=== PATIENT | female | born 1955 | race Caucasian/White ===

== ENCOUNTER → 2021-03-19 13:35 | Outpatient (CLI) | payer MEDICARE, SELFPAY ==
--- NOTE | 2021-03-19 | ECG_ITS ---
APPROVED REPORT Exam: Resting ECG HR:87 bpm ECG Measurements Heart Rate 87 AXES AK 134 P 61 QRSd 72 QRS 62 QT 374 T 12 QTc 450 Conclusion Normal sinus rhythm Normal ECG Electronically signed by : Cornel Gaona, 03/19/2021 17:28:25
--- NOTE | 2021-03-19 13:46 | XR_ITS ---
PROCEDURE: XR SACRUM COCCYX MIN 2V CLINICAL INDICATION: pain COMPARISON: No exams were available for comparison FINDINGS: There is diffuse osteopenia. The lower sacrum and coccyx are barely visible on the lateral view. No obvious displaced fracture. Nondisplaced fractures or subtle bony lesions are not excluded based on this exam. CT or MRI may provide further evaluation if clinically warranted. Bilateral iliac artery stents, multiple pelvic phleboliths, and 3 pins within the left femur are noted IMPRESSION: As above, limited evaluation of the lower sacrum and coccyx with no obvious acute finding. Dictated by: Clive Morrissey MD 03/19/2021 14:59 Clive Morrissey MD in [place] 03/19/2021 14:59
--- NOTE | 2021-03-19 13:46 | XR_ITS ---
PROCEDURE: XR LUMBAR SPINE 2-3V CLINICAL INDICATION: back pain COMPARISON: No exams were available for comparison FINDINGS: Mild lumbar curvature convex right. Iliac artery stents are present. There is degenerative disc disease at L4-3 L4 with minimal loss of height anteriorly of L3. There is slight loss of height anteriorly of the L3 vertebral body age indeterminate. No previous studies are available for comparison. Other findings:None. IMPRESSION: Mild lumbar scoliosis convex right with degenerative disc disease at L3-L4 Slight decrease in height of L3 vertebral body age indeterminate. Dictated by: Clive Morrissey MD 03/19/2021 15:02 Clive Morrissey MD in [facility] 03/19/2021 15:02
[2021-03-19 14:31] LABS: Basophils % 0.3 % (0.1-2.0); Eosinophils # 0.2 K/mm3 (0.0-0.4); Eosinophils % 2.1 % (0.1-12.0); Hematocrit 40.1 % (37.0-47.0); Hemoglobin 13.3 g/dL (12.2-16.2); Lymphocytes # 2.5 K/mm3 (0.7-4.5); Lymphocytes % 32.7 % (10-50); Mean Corpuscular HGB Conc 33.1 g/dL (31.8-35.4); Mean Corpuscular Hemoglobin 33.1 pg (27.0-31.2); Mean Corpuscular Volume 99.8 fl (81-99); Mean Platelet Volume 8.2 fl (7.4-10.4); Monocytes # 0.6 K/mm3 (0.1-1.0); Monocytes % 7.4 % (1.7-9.3); Neutrophils # 4.5 K/mm3 (1.8-7.8); Neutrophils % 57.5 % (37.0-80.0); Platelet Count 312 K/mm3 (142-424); Red Blood Count 4.02 M/mm3 (4.20-5.40); Red Cell Distribution Width 14.1 % (11.5-17.5); White Blood Count 7.7 K/mm3 (4.8-10.8)
[2021-03-19 14:55] LABS: Alanine Aminotransferase 18 U/L (12-78); Albumin/Globulin Ratio 1.5 (1.1-1.8); Alkaline Phosphatase 145 U/L (38-126); Anion Gap 15.5 mEq/L (5-15); Aspartate Amino Transferase 31 U/L (14-36); Bilirubin,Total 0.4 mg/dl (0.2-1.3); Blood Urea Nitrogen 13 mg/dl (7-17); Calcium 8.9 mg/dl (8.4-10.2); Carbon Dioxide 18 mmol/L (22.0-30.0); Chloride 107 mmol/L (98-107); Estimated Glomerular Filt Rate 72 ml/min (>60); GFR (African American) 87 ML/MIN (>60); Globulin 2.7 g/dL (1.3-3.2); Glucose 93 mg/dl (74-100); Potassium 4.5 mmoL/L (3.5-5.1); Sodium 136 mmol/L (136-145); Total Protein,Serum 6.7 g/dl (6.3-8.2)
[2021-03-19 16:05] LABS: Folate 4.16 ng/mL
== END ==
PROVIDERS: Visit Provider Specialist
DX: G20 Parkinson's disease (principal); G37.9 Demyelinating disease of central nervous system, unspecified; G89.29 Other chronic pain; I25.2 Old myocardial infarction; M25.552 Pain in left hip; M32.9 Systemic lupus erythematosus, unspecified; M54.42 Lumbago with sciatica, left side; R29.2 Abnormal reflex; W19.XXXA Unspecified fall, initial encounter; Z86.73 Personal history of transient ischemic attack (TIA), and cerebral infarction without residual deficits; Z86.79 Personal history of other diseases of the circulatory system; Z72.0 Tobacco use
CPT/HCPCS: 36415; 72100; 72220; 80053; 82746; 84443; 85025; 93005

== ENCOUNTER → 2021-04-21 08:18 | Outpatient (CLI) | payer MEDICARE, MEDICAID, SELFPAY ==
--- NOTE | 2021-04-21 08:18 | MR_ITS ---
PROCEDURE: MR HEAD/BRAIN WO CON CLINICAL INDICATION: hitory of cva Pt states h/o MS. Prior hx stroke in 2018. COMPARISON: CT CT HEAD/BRAIN WO CON from 12/09/2019 TECHNIQUE: Routine multiplanar multi echo sequences are performed without gadolinium enhancement. Double inversion recovery images also performed. FINDINGS: No midline shift, mass effect, intracranial hemorrhage, or hydrocephalus. The cerebellopontine angles, cerebellum, and brainstem have an unremarkable appearance. Scattered confluent T2 white matter hyperintensities are present diffusely with exception of the temporal lobe. Basal ganglia involvement is also present. There is diffuse increase in central T2 signal of the ze. These areas do not demonstrate restricted diffusion. There is no corpus callosum involvement.. No cerebellar or temporal lobe involvement. There is an old lacunar infarction of the thalamus on the right with cystic encephalomalacia changes in the thalamus. The cystic changes measure approximately 11 x 5 mm. Bilateral perivascular dilated spaces are present in the basal ganglia. There is a lobular area of decreased T2 signal noted on the sagittal images in the region of the anterior communicating artery measuring 8 x 5 mm suspicious for an aneurysm. If the patient can have iodinated contrast then, CT angiogram would be preferred next step in evaluation. If the patient cannot have contrast then MRA would be a good alternative. The pituitary, corpus callosum, optic chiasm, and craniocervical junction have an unremarkable appearance. No mastoid effusion. There are few small retention cysts in the sphenoid and ethmoid sinuses. No sinus air-fluid level. IMPRESSION: 1. 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 Suggest CT angiogram of the head for further evaluation. MRA may would also be an acceptable follow-up. 2. Diffuse increase in T2 white matter signal intensity as well as involvement of the ze. The pattern is more suggestive of ischemic gliotic change from microvascular disease. Multiple sclerosis would be included in the differential diagnosis. Dictated by: Clive Morrissey MD 04/22/2021 09:12 Clive Morrissey MD in [facility] 04/22/2021 09:12
--- NOTE | 2021-04-21 08:18 | MR_ITS ---
PROCEDURE: MR LUMBAR SPINE WO CON CLINICAL INDICATION: low back pain Lt leg pain and numbness. Prior x-ray 03/19/21. COMPARISON: CR XR LUMBAR SPINE 2-3V from 03/19/2021 MR MR HEAD/BRAIN WO CON from 04/21/2021 TECHNIQUE: Standard multiplanar multiecho sequences are performed without contrast. 3-D MIP and myelographic images are also rendered and reviewed FINDINGS: There is normal alignment. Spinal cord ends at the L1-L2 level. There is mild lumbar curvature convex right. T11-T12 and T12-L1. Small Schmorl's nodes with some decrease in the disc space and desiccation consistent with degenerative disc disease. Very minimal central disc protrusion at T12-L1 without impingement. L1-L2: Degenerative disc disease with concentric bulging disc with facet and ligamentum hypertrophic change with bilateral lateral recess narrowing and moderate bilateral foraminal narrowing left slightly greater than right. L2-L3: Degenerative disc disease with concentric bulging disc slightly eccentric toward the right with facet and ligamentum hypertrophic change with moderate to severe bilateral lateral recess narrowing and bilateral foraminal narrowing L3-L4: Degenerative disc disease with bulging disc along with facet and ligamentum hypertrophic change with severe bilateral lateral recess narrowing. There is a medium-sized left paracentral and foraminal disc herniation with mild superior extrusion causing severe left lateral recess and foraminal narrowing with impingement upon the exiting L3 nerve root and also some impingement upon the L4 nerve root anterior laterally. There is minimal retrolisthesis of L3 of 3 mm with canal stenosis at this level. L4-5: Mild facet and ligamentum hypertrophic change with moderate right-sided foraminal narrowing. L5-S1: Bulging disc with small broad-based right paracentral disc protrusion abutting the right S1 nerve root. Mild bilateral foraminal narrowing from facet hypertrophic change. IMPRESSION: Abnormal MRI of the lumbar spine with multilevel lumbar spondylosis with degenerative disc disease, bulging discs, left paracentral and foraminal disc herniation at L3-L4 with neural impingement. Please see above for detailed description at each level. Dictated by: Clive Morrissey MD 04/22/2021 08:24 Clive Morrissey MD in [facility] 04/22/2021 08:24
== END ==
PROVIDERS: PCP Nurse Practitioner; Visit Provider Specialist
DX: G20 Parkinson's disease (principal); G37.9 Demyelinating disease of central nervous system, unspecified; G89.29 Other chronic pain; I25.2 Old myocardial infarction; M25.552 Pain in left hip; M32.9 Systemic lupus erythematosus, unspecified; M54.42 Lumbago with sciatica, left side; R29.2 Abnormal reflex; W19.XXXA Unspecified fall, initial encounter; Z86.73 Personal history of transient ischemic attack (TIA), and cerebral infarction without residual deficits; Z86.79 Personal history of other diseases of the circulatory system
CPT/HCPCS: 70551; 72148; 76376; 93306

== ENCOUNTER → 2021-04-26 08:34 | Outpatient (CLI) | payer MEDICARE, MEDICAID, SELFPAY ==
--- NOTE | 2021-04-26 09:10 | CT_ITS ---
Procedure: CT ANGIO HEAD CLINICAL HISTORY: anterior comm artery aneurysm-RADIOLOGIST RECOMEND Abnormal MRI a suggesting an aneurysm of the anterior communicating artery COMPARISON: CT CT HEAD/BRAIN WO CON from 12/09/2019 TECHNIQUE: IV Contrast: 100ml Isovue 370 Axial images obtained with sagittal and coronal reformats. All CT scans at the facility use one or more dose reduction, viz: automated exposure control, ma/kV adjustment per patient size (including targeted exams where dose is matched to indication, i.e. head), or iterative reconstruction technique. FINDINGS: There is a saccular aneurysm projecting anteriorly from the right side of the anterior communicating artery. The aneurysm measures 5.5 mm AP, 4.5 mm transverse, and 5 mm cephalad caudad. The aneurysm has a somewhat lobular contour and is pointing anteriorly. The left A1 segment of the internal carotid artery is hypoplastic but does contribute to the anterior circulation. Most of the anterior circulation is contributed by the right A1 segment. The aneurysm originates at the junction the right A2 segment and the anterior communicating artery which courses mostly posterior to anteriorly. No other aneurysm is evident. No intracranial occlusive process or AVM apparent. There is a prominent left posterior communicating artery. Mild calcific plaque is present involving the cavernous portions of the ICAs. No significant stenosis. No dissection. No enhancing lesions are evident. No midline shift or mass effect. There is opacification of the sphenoid sinus on the left with a retention cyst on the right at 6 mm. IMPRESSION: 1. 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 2. 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
[2021-04-26 09:21] LABS: Blood Urea Nitrogen 5 mg/dl (7-17); Estimated Glomerular Filt Rate 72 ml/min (>60); GFR (African American) 87 ML/MIN (>60)
== END ==
PROVIDERS: Nurse Practitioner Family; PCP Nurse Practitioner; Visit Provider Specialist
DX: G43.909 Migraine, unspecified, not intractable, without status migrainosus (principal); R56.9 Unspecified convulsions; W19.XXXA Unspecified fall, initial encounter; Z86.73 Personal history of transient ischemic attack (TIA), and cerebral infarction without residual deficits; I67.1 Cerebral aneurysm, nonruptured
CPT/HCPCS: 36415; 70496; 82565; 84520; Q9967

== ENCOUNTER 2022-01-27 01:51 | Emergency (ER) | payer MEDICARE, MEDICAID, SELFPAY ==
[2022-01-27] VITALS (10 sets, daily range): BP systolic 77–138; BP diastolic 51–91; PULSE 66–91; RESP 16–18; TEMP 36.6–36.7; O2SAT 96–99
--- NOTE | 2022-01-27 02:11 | ECG_ITS ---
APPROVED REPORT Exam: Resting ECG HR:70 bpm ECG Measurements Heart Rate 70 AXES MT 148 P 75 QRSd 85 QRS 84 QT 450 T 67 QTc 470 Conclusion SINUS RHYTHM NORMAL ECG UNCONFIRMED REPORT Electronically signed by : Cornel Gaona MD 01/27/2022 17:41:21
--- NOTE | 2022-01-27 02:16 | XR_ITS ---
PROCEDURE INFORMATION: Exam: XR Chest Exam date and time: 01/27/2022 2:28 AM Age: 66 years old Clinical indication: Shortness of breath; Sternal or substernal pain; Additional info: SOA TECHNIQUE: Imaging protocol: XR of the chest. Views: 1 view. COMPARISON: CR XR CHEST AP 12/09/2019 5:43 AM FINDINGS: Lungs: Unremarkable. No consolidation. Pleural spaces: No pleural effusion. No pneumothorax. Heart/Mediastinum: Normal heart size. Bones/joints: Chronic-appearing deformity of the bilateral proximal humeri suggesting remote prior trauma. Old rib fractures. Degenerative changes. Prominent right subacromial keel spur. Osteopenia. IMPRESSION: No acute finding.
[2022-01-27 02:49] LABS: Erythrocyte Sedimentation Rate 19 mm/hr (0-30)
[2022-01-27 03:03] LABS: Microscopic, Urine URINE MICROSCOPIC (MICROSCOPIC)
[2022-01-27 03:06] LABS: Appearance,Urine CLEAR (Clear); Bilirubin,Urine Negative (Negative); Blood, Urine Negative (Negative); Color,Urine YELLOW (Yellow); Glucose,Urine (UA) Negative (Negative); Ketones,Urine Negative (Negative); Leukocyte Esterase,Urine Negative (Negative); Nitrate,Urine Negative (Negative); Protein,Urine Negative (Negative); Urobilinogen,Urine 0.2 EU/dl (0.2)
--- NOTE | 2022-01-27 03:22 | HMH.EDSOB ---
ED Disposition Clinical Impression: Acute exacerbation of chronic obstructive airways disease Disposition: Home, Self-Care Condition on Discharge: Good Instructions: DI for Chronic Obstructive Pulmonary Disease Additional Instructions: fluids and call pcp for follow up Prescriptions: predniSONE [Prednisone 20mg Tab] 20 mg PO BID #10 tab Transmission Status: Pending to [facility] Referrals: Provider,Referral, [Primary Care Provider] - - Critical Care Critical Care Time: No Attestation: On 01/27/22, the high probability of a clinically significant, sudden or life threatening deterioration of the following system(s) required my full and direct attention, intervention and personal management. The time I documented below is in addition to time spent performing reported procedures but includes the following listed in this critical care notation. Medical Decision Making - Medical Records Medical records reviewed: Yes: I reviewed the patient's medical records. - [facility] Inquiry Pt receiving controlled substance: No Vital Signs: 01/27/22 01:44 01/27/22 02:04 01/27/22 02:06 Temperature 97.8 F Temperature Source Oral Pulse Rate 86 70 Pulse Rate [Left Radial] 71 Pulse Rate [Orthostatic Lying Left Radial] Pulse Rate [Orthostatic Sitting Left Radial] Pulse Rate [Orthostatic Standing Left Radial] Respiratory Rate 18 Blood Pressure 77/52 L 97/51 L Blood Pressure [Orthostatic Lying Right Arm] Blood Pressure [Orthostatic Sitting Right Arm] Blood Pressure [Orthostatic Standing Right Arm] Blood Pressure [Right Arm] 96/54 L Blood Pressure Mean 57 64 Blood Pressure Mean [Right Arm] 68 Blood Pressure Source [Right Arm] Automatic Cuff Blood Pressure Position [Right Arm] Sitting 02 Sat by Pulse Oximetry 98 98 99 Oxygen Delivery Method Room Air 01/27/22 02:16 01/27/22 02:30 01/27/22 02:36 Temperature Temperature Source Pulse Rate 70 71 Pulse Rate [Left Radial] Pulse Rate [Orthostatic Lying Left Radial] 71 Pulse Rate [Orthostatic Sitting Left Radial] 69 Pulse Rate [Orthostatic Standing Left Radial] 86 Respiratory Rate Blood Pressure 93/52 L Blood Pressure [Orthostatic Lying Right Arm] 96/54 L Blood Pressure [Orthostatic Sitting Right Arm] 92/54 L Blood Pressure [Orthostatic Standing Right Arm] 77/52 L Blood Pressure [Right Arm] Blood Pressure Mean 61 Blood Pressure Mean [Right Arm] Blood Pressure Source [Right Arm] Blood Pressure Position [Right Arm] 02 Sat by Pulse Oximetry Oxygen Delivery Method 01/27/22 03:00 01/27/22 05:17 Temperature Temperature Source Pulse Rate 66 Pulse Rate [Left Radial] Pulse Rate [Orthostatic Lying Left Radial] 75 Pulse Rate [Orthostatic Sitting Left Radial] 82 Pulse Rate [Orthostatic Standing Left Radial] 83 Respiratory Rate Blood Pressure 112/61 Blood Pressure [Orthostatic Lying Right Arm] 118/60 Blood Pressure [Orthostatic Sitting Right Arm] 138/83 Blood Pressure [Orthostatic Standing Right Arm] 138/81 Blood Pressure [Right Arm] Blood Pressure Mean 78 Blood Pressure Mean [Right Arm] Blood Pressure Source [Right Arm] Blood Pressure Position [Right Arm] 02 Sat by Pulse Oximetry 99 Oxygen Delivery Method - Lab Data Lab results reviewed: Yes: I reviewed the patient's lab results. Lab Results 01/27/22 02:00: ESR 19 01/27/22 02:00: WBC 6.5, RBC 3.53 L, Hgb 11.6 L, Hct 36.4 L, MCV 103.1 H, MCH 32.9 H, MCHC 31.9, RDW 14.3, Plt Count 275, MPV 10.3, Neut % (Auto) TNP, Lymph % (Auto) TNP, Tate % (Auto) TNP, Eos % (Auto) TNP, Baso % (Auto) TNP, Neut # (Auto) TNP, Lymph # (Auto) TNP, Tate # (Auto) TNP, Eos # (Auto) TNP, Baso # (Auto) TNP 01/27/22 02:57: Troponin I < 0.01, C-Reactive Protein 6.0 H, Procalcitonin 0.234, TSH 1.67, Thyroxine (T4) 6.4 01/27/22 02:57: Sodium 138, Potassium 2.9 L*, Chloride 116 H, Carbon Dioxide 18 L, Anion Gap 6.9, BUN 8, Creatinine
[2022-01-27 03:28] LABS: Alanine Aminotransferase 19 U/L (12-78); Albumin Level 3.4 g/dl (3.5-5.0); Albumin/Globulin Ratio 1.4 (1.1-1.8); Alkaline Phosphatase 155 U/L (38-126); Anion Gap 6.9 mEq/L (5-15); Aspartate Amino Transferase 33 U/L (14-36); Bilirubin,Total 0.4 mg/dl (0.2-1.3); Blood Urea Nitrogen 8 mg/dl (7-17); Calcium 7.3 mg/dl (8.4-10.2); Carbon Dioxide 18 mmol/L (22.0-30.0); Chloride 116 mmol/L (98-107); Creatinine Clearance Estimated 46 mL/min (50-200); Estimated Glomerular Filt Rate 100 ml/min (>60); GFR (African American) 121 ML/MIN (>60); Globulin 2.5 g/dL (1.3-3.2); Glucose 77 mg/dl (74-100); Magnesium 1.9 mg/dl (1.6-2.3); Sodium 138 mmol/L (136-145); Total Protein,Serum 5.9 g/dl (6.3-8.2)
[2022-01-27 03:35] LABS: Bacteria,Urine Trace /lpf
[2022-01-27 03:36] LABS: Potassium 2.9 mmoL/L (3.5-5.1)
--- NOTE | 2022-01-27 03:44 | CT_ITS ---
PROCEDURE INFORMATION: Exam: CTA Chest With Contrast Exam date and time: 01/27/2022 4:01 AM Age: 66 years old Clinical indication: Shortness of breath; Prior surgery; Additional info: SOA TECHNIQUE: Imaging protocol: Computed tomographic angiography of the chest with contrast. 3D rendering (Not supervised by radiologist): MIP and/or 3D reconstructed images were created by the technologist. Radiation optimization: All CT scans at this facility use at least one of these dose optimization techniques: automated exposure control; mA and/or kV adjustment per patient size (includes targeted exams where dose is matched to clinical indication); or iterative reconstruction. Contrast material: ISOVUE; Contrast volume: 70 ml; Contrast route: INTRAVENOUS (IV); COMPARISON: CR XR CHEST PORTABLE 01/27/2022 2:28 AM FINDINGS: Pulmonary arteries: Normal. No pulmonary emboli. Aorta: Unremarkable. No aortic aneurysm. No aortic dissection. Lungs: Dependent atelectasis is noted. There is a 16 x 18 mm subsolid nodular density within the right lower lobe. Pleural spaces: Unremarkable. No pneumothorax. No pleural effusion. Heart: Coronary atherosclerosis is noted. Lymph nodes: Unremarkable. No enlarged lymph nodes. Liver: Peripherally enhancing lesion is seen within the right lobe of the liver likely hemangioma this measures 2.5 cm in diameter. Some chronic interstitial changes are present bilaterally. Bones/joints: Unremarkable. No acute fracture. Soft tissues: Unremarkable. IMPRESSION: 1. No evidence of pulmonary embolus. 2. 18 mm subsolid nodular density in the right lower lobe. Recommend CT Chest at 3-6 months to confirm persistence of the nodule. If unchanged and solid component remains < 6 mm, annual CT Chest should be performed for 5 years. (Reference: Matthew). 3. Coronary atherosclerosis. REFERENCES: Matthew Prajapati et al. Guidelines for Management of Incidental Pulmonary Nodules Detected on CT Images: From the Fleischner Society 2017. Radiology. 2017;284(1):228-243.
[2022-01-27 03:56] LABS: Troponin I < 0.01 ng/ml (0.00-0.034)
[2022-01-27 03:58] LABS: Procalcitonin 0.234 ng/mL (0.0-2.0); T4 (Thyroxine) 6.4 ug/dl (5.53-11.0)
[2022-01-27 04:12] LABS: Thyroid Stimulating Hormone 1.67 uIU/mL (0.465-4.68)
[2022-01-27 04:23] LABS: NT Pro Brain Natriuretic Pep. 393 pg/mL (0-125)
[2022-01-27 04:23] LABS: Coronavirus 19, PCR Not Detected (NotDetected); Influenza A, PCR Not Detected (NotDetected); Influenza B, PCR Not Detected (NotDetected)
[2022-01-27 05:37] LABS: Troponin I < 0.01 ng/ml (0.00-0.034)
[2022-01-27 05:45] LABS: Hematocrit 36.4 % (37.0-47.0); Hemoglobin 11.6 g/dL (12.2-16.2); Mean Corpuscular Hemoglobin 32.9 pg (27.0-31.2); Mean Corpuscular Volume 103.1 fl (81-99); Red Blood Count 3.53 M/mm3 (4.20-5.40)
[2022-01-27 05:46] LABS: Mean Corpuscular HGB Conc 31.9 g/dL (31.8-35.4); Mean Platelet Volume 10.3 fl (7.4-10.4); Platelet Count 275 K/mm3 (142-424); Red Cell Distribution Width 14.3 % (11.5-17.5); White Blood Count 6.5 K/mm3 (4.8-10.8)
== END 2022-01-27 07:06 | disposition home or self-care (01) ==
PROVIDERS: Emergency Provider Emergency Medicine
DX: R42 Dizziness and giddiness; N20.2 Calculus of kidney with calculus of ureter; Z20.822 Contact with and (suspected) exposure to COVID-19; I11.0 Hypertensive heart disease with heart failure; I50.20 Unspecified systolic (congestive) heart failure; I25.10 Atherosclerotic heart disease of native coronary artery without angina pectoris; I25.2 Old myocardial infarction; I73.9 Peripheral vascular disease, unspecified; I72.9 Aneurysm of unspecified site; E78.5 Hyperlipidemia, unspecified; M81.0 Age-related osteoporosis without current pathological fracture; G43.909 Migraine, unspecified, not intractable, without status migrainosus; G35 Multiple sclerosis; F17.210 Nicotine dependence, cigarettes, uncomplicated; Z79.02 Long term (current) use of antithrombotics/antiplatelets; Z79.52 Long term (current) use of systemic steroids; Z79.82 Long term (current) use of aspirin; Z79.899 Other long term (current) drug therapy; Z88.5 Allergy status to narcotic agent; Z95.5 Presence of coronary angioplasty implant and graft; Z86.718 Personal history of other venous thrombosis and embolism; Z82.49 Family history of ischemic heart disease and other diseases of the circulatory system; Z80.9 Family history of malignant neoplasm, unspecified; Z83.3 Family history of diabetes mellitus
CPT/HCPCS: 71045; 71275; 80053; 81001; 83735; 83880; 84145; 84436; 84443; 84484; 85025; 85651; 86140; 93005; 96361; 96365; 96374; 96375; 99285; C9803; Q9967; U0003; U0005

== ENCOUNTER → 2022-07-06 07:02 | Outpatient (CLI) | payer MEDICARE, MEDICAID, SELFPAY ==
[2022-07-06 19:19] LABS: Basophils # 0.3 K/mm3 (0-0.2); Basophils % 3.5 % (0.1-2.0); Eosinophils # 0.1 K/mm3 (0.0-0.4); Eosinophils % 1.4 % (0.1-12.0); Hematocrit 49.3 % (37.0-47.0); Hemoglobin 14.8 g/dL (12.2-16.2); Lymphocytes # 1.9 K/mm3 (0.7-4.5); Lymphocytes % 23.6 % (10-50); Mean Corpuscular Hemoglobin 33.8 pg (27.0-31.2); Mean Corpuscular Volume 112.6 fl (81-99); Mean Platelet Volume 9.1 fl (7.4-10.4); Monocytes # 0.5 K/mm3 (0.1-1.0); Neutrophils % 64.4 % (37.0-80.0); Platelet Count 422 K/mm3 (142-424); Red Blood Count 4.38 M/mm3 (4.20-5.40); Red Cell Distribution Width 14.5 % (11.5-17.5); White Blood Count 7.8 K/mm3 (4.8-10.8)
[2022-07-06 19:21] LABS: Alanine Aminotransferase 20 U/L (12-78); Albumin Level 3.7 g/dl (3.5-5.0); Albumin/Globulin Ratio 1.3 (1.1-1.8); Alkaline Phosphatase 198 U/L (38-126); Anion Gap 14.3 mEq/L (5-15); Aspartate Amino Transferase 39 U/L (14-36); Blood Urea Nitrogen 13 mg/dl (7-17); Calcium 8.6 mg/dl (8.4-10.2); Carbon Dioxide 23 mmol/L (22.0-30.0); Chloride 109 mmol/L (98-107); Chol/HDL Ratio 3.1 (1-3.5); Cholesterol 228 mg/dl (140-200); Estimated Glomerular Filt Rate 83 ml/min (>60); GFR (African American) 101 ML/MIN (>60); Globulin 2.8 g/dL (1.3-3.2); Glucose 89 mg/dl (74-100); HDL Cholesterol 73 mg/dl (40-60); Potassium 4.3 mmoL/L (3.5-5.1); Sodium 142 mmol/L (136-145); Total Protein,Serum 6.5 g/dl (6.3-8.2); Triglycerides 185 mg/dl (30-150); VLDL Cholesterol 37 mg/dL (0-40)
[2022-07-06 19:30] LABS: Bilirubin,Total < 0.1 mg/dl (0.2-1.3)
[2022-07-06 19:32] LABS: Direct LDL Cholesterol 118.69 mg/dL (100-129)
[2022-07-06 20:11] LABS: Vitamin B12 192 pg/mL (239-931)
== END ==
PROVIDERS: PCP Family Medicine; Visit Provider Student in an Organized Health Care Education/Training Program
DX: Z76.89 Persons encountering health services in other specified circumstances (principal); R10.9 Unspecified abdominal pain; I10 Essential (primary) hypertension; G40.909 Epilepsy, unspecified, not intractable, without status epilepticus
CPT/HCPCS: 80053; 80061; 82607; 85025

== ENCOUNTER 2024-06-26 16:47 | Outpatient (CLI) | payer MEDICARE, MEDICAID, SELFPAY ==
--- NOTE | 2024-06-26 16:51 | CT_ITS ---
PROCEDURE INFORMATION: Exam: CT Head Without Contrast Exam date and time: 06/26/2024 4:50 PM Age: 69 years old Clinical indication: Dizziness TECHNIQUE: Imaging protocol: Computed tomography of the head without contrast. Radiation optimization: All CT scans at this facility use at least one of these dose optimization techniques: automated exposure control; mA and/or kV adjustment per patient size (includes targeted exams where dose is matched to clinical indication); or iterative reconstruction. COMPARISON: CT ANGIO HEAD 04/26/2021 9:43 AM FINDINGS: Brain: There is no evidence of acute intracranial hemorrhage, extra-axial collection or locoregional mass effect. There are scattered hypodensities in the periventricular and subcortical white matter. The appearance is nonspecific, but most likely represents chronic small vessel disease in a person of this age Cerebral ventricles: The ventricles, sulci and cisterns are normal in size and configuration for patient's age. No hydrocephalus or midline structure shift Pituitary gland and sella: Sellar/parasellar structures, craniocervical junction and orbits are unremarkable Paranasal sinuses: Scattered mucosal thickening throughout the paranasal sinuses. Mastoid air cells: Visualized mastoid air cells are well aerated. Bones: No calvarial fracture Soft tissues: Unremarkable. Vasculature: Status post anterior communicating artery coil embolization. Photon starvation and streaky artifact from surgical hardware slightly obscures the assessment of the surrounding structures. IMPRESSION: 1. No acute intracranial abnormality. No calvarial fracture. 2. Status post anterior communicating artery coil embolization.
== END 2024-06-26 23:59 | disposition home or self-care (01) ==
LOC: RAD 16:47
PROVIDERS: PCP Nurse Practitioner; Visit Provider Nurse Practitioner
DX: R42 Dizziness and giddiness (principal)
CPT/HCPCS: 70450

== ENCOUNTER 2024-12-05 06:33 | Inpatient (IN) | payer MEDICARE, MEDICAID, SELFPAY ==
[2024-12-05] VITALS (59 sets, daily range): BP systolic 74–161; BP diastolic 42–127; PULSE 0–145; RESP 0–49; TEMP 35.4–36.8; O2SAT 0–97; BMI 19.5
--- NOTE | 2024-12-05 06:52 | ECG_ITS ---
APPROVED REPORT Exam: Resting ECG HR:102 bpm ECG Measurements Heart Rate 102 AXES FL 111 P -42 QRSd 84 QRS 82 QT 393 T 72 QTc 452 Conclusion SINUS TACHYCARDIA WITH SHORT FL INTERVAL POSSIBLE RIGHT VENTRICULAR CONDUCTION DELAY [RSR (QR) IN V1/V2] ST DEPRESSION, CONSIDER SUBENDOCARDIAL INJURY [0.1+ mV ST DEPRESSION] ABNORMAL ECG UNCONFIRMED REPORT Electronically signed by : Cornel Gaona MD 12/05/2024 12:54:22
--- NOTE | 2024-12-05 07:13 | PC.NURSE ---
Patient arrived to floor via [facility] @06:32
--- NOTE | 2024-12-05 07:14 | PC.NURSE ---
Patient arrived to ICU unit via [place] [facility] @06:32
--- NOTE | 2024-12-05 07:15 | PC.NURSE ---
0715 THIS NURSE TO PT BEDSIDE. ON ARRIVAL MARVA AND DR. BERG IS AT BEDSIDE PLACING A CENTRAL LINE TO RIGHT JUGULAR. PT IS ALERT AND ORIENTED AND CURRENTLY HAS A 18G IV IN RIGHT UPPER ARM AND 18G FOOT. PT IS CURRENTLY ON THE BIPAP AND NOT TOLERATING IT WELL. DR. BERG PERFORMED RIGHT SIDED THORACENTESIS WITH THIS NURSE AT BEDSIDE. REMOVED 1L FLUID. FLUID COLLECTED AND SENT TO LAB. DURING PROCEDURE PT HAD A BRADYCARDIC EPISODE WITH A HR LOW 30 AND WAS PALE AND DIAPHORETIC IN APPEARANCE. PT WAS UNCOVERED AND IMMEDIATELY PLACED ON THE ZOLL. ZEUS WITH CARDIOLOGY AT BEDSIDE AND DR. COTE PAGED TO BEDSIDE. AFTER ABOUT 2 MINUTES PT HEART RATE JUMPED TO 117 AND SYMPTOMS STABILIZED.
--- NOTE | 2024-12-05 07:23 | CT_ITS ---
FINAL REPORT TECHNIQUE: Axial imaging of the chest is obtained after the administration of contrast. 3-D MIP reformatted images were also obtained and reviewed per PE protocol. CLINICAL HISTORY: effusion, respiratory failure COMPARISON: 01/27/2022 FINDINGS: Filling defects are seen within the distal aspects of both main pulmonary arteries. There is segmental emboli in the right upper lobe and left lower lobe. RV to LV ratio is greater than 1 consistent with heart strain. There is no aortic dissection. No axillary lymphadenopathy. Multiple enlarged mediastinal and right hilar lymph nodes. A right paratracheal node measures 22 mm. Right hilar conglomerate measures 38 mm. Some of these are new and some are worse compared to the prior study.. There are several small enhancing pleural nodules at the right lung base. Airspace disease in the right middle lobe and right lower lobe is likely related to postobstructive pneumonia. The right lower lobe bronchus is occluded. Bilateral ground-glass opacities could be pneumonia or pulmonary edema. New moderate right pleural effusion and left pericardial effusion. Bilateral old rib fractures are noted. There is age-indeterminate T5 compression fracture. IMPRESSION: Bilateral pulmonary emboli with right heart strain. Mediastinal and right hilar lymphadenopathy with obstruction of the right lower lobe bronchus and what is likely postobstructive pneumonia in the right middle and lower lobes, almost assuredly related to neoplasm. Right pleural effusion with pleural nodules concerning for pleural metastases. T5 fracture, age indeterminate. Reviewed, Interpreted and Dictated by Christine Hartman MD Transcribed by Marianne Wylie Authenticated and [facility]
--- NOTE | 2024-12-05 07:23 | HMH.PHAINT1 ---
Pharmacy Intervention Comments: MEDICATION RECONCILIATION COMPLETED ON PATIENT USING EXTERNAL FILL HISTORY FROM PHARMACY AND [facility] REPORT. -IDALIA LANGLEY, HALLEYD
--- NOTE | 2024-12-05 07:27 | P.HP_ITS ---
History of Present Illness *Admission Date: 12/05/24 *Reason for visit:: sepsis *History of present illness: Ms. Mcgovern 69-year-old female who presented to [facility] due to chest discomfort and shortness of breath along with nausea and vomiting with poor p.o. intake for the past 3 to 4 days. On presentation was found to have right sided pleural effusion and troponin of 500. Cardiology was consulted for transfer which was initiated given patient's bradycardia and elevated troponin. Concern for NSTEMI and bradycardia along with effusion of unknown etiology. On arrival to our facility, labs reviewed showing elevated white count above 14 on outside hospital labs. Troponin was stable at 500 on high-sensitivity. EKG did not show ST elevations. Had episodes of bradycardia necessitating external pacing in the ambulance during transport as well as patient was started on dopamine for bradycardia and hypotension. Was placed on BiPAP upon arrival due to respiratory distress. Right IJ placed by ER physician and thoracentesis performed with removal of 1 L of blood-tinged fluid. Patient was transitioned to nasal cannula oxygen at 4 to 6 L but continued to require dopamine for hypotension and bradycardia. Was able to give more history at this time. States she has been feeling weak and having nausea and vomiting for 3 to 4 days. States she had some chest pain earlier today but does not right now. Also complaining of diffuse abdominal pain. Denies darlin fever. Family at bedside helps supplement history. Son states she is lost weight over the past year. Patient has extensive history of MS diagnosed approximately 15 years ago for which she does not seek treatment. History of CVA. Residual right-sided deficits. Continues to smoke proximately a half to a whole pack a day and has smoked for over 50 years. Review of chart shows that patient was found to have a 2 cm right lower lobe lung lesion in 01/2022 that was highly suspicious. There is been no follow-up imaging since. Previously saw neurology with Dr. Yang at [facility], last visit in 2020. Patient reports she is supposed to see Dr. Yang in the next 2 months for follow-up. Additionally patient has significant history of peripheral vascular disease. Has had stenting of bilateral femoral arteries. Has lost her right great toe due to ischemia. Left foot is cool to touch but has pulses identified via Doppler. Complaining of pain in her left foot and leg for over a month. During interview, states she wants her sister to be her surrogate decision maker and wants to be a full code at this time but states that she may want to be DNR depending on diagnoses. Has been a DNR in the past. Per chart review from follow-up with neurology: 03/09/2021: Previous diagnosis of demyelinating disorder, (declined therapy in the past, suspected to be MS based on imaging and CSF studies), remote history of seizures, (inactive since 2018), chronic migraines, (asymptomatic), remote history of stroke in the past with residual right-sided deficits. Longtime smoker. Incidental finding of ACOM aneurysm, status post coiling, active follow-up with Dr. Charles Sood, neurosurgeon, [facility]. Previous diagnosis of underlying demyelinating disorder as described on historical summary that likely account for multiple neurological deficits, gait disturbances and frequent falls. Cannot exclude secondary progressive MS. She declined disease modifying therapy in the past and she is following expected course including gait disturbances, frequent falls, memory impairment, MCI. She is on topiramate 200 mg p.o. twice daily due to remote history of seizure, seizure-free since 2018 and migraines currently headache free. She complained of short-term memory impairment and this may be, at least in part, due to current therapy with topiramate. She is not interested on change in treatment at this time or pursuing formal neuropsychological evaluation. 1. History of systemic Lupus with multiple hospitalizations due to organ failure with prior evaluation and treatment by Dr. Edgar, Internal Medicine, in [place]. Has not established rheumatological care here in [place]. Diastolic heart failure, has not established cardiac care in [place] 2. CVA, 2018, in patient at [facility] [phone] with right sided weakness, dysphagia, memory loss, language impairment with speech returned to normal after speech therapy. 3. History of seizures. Last seizure May 2018 in the setting of [place], CHF. Reports medication and dosage remained the same, phenobarbital and later on topiramate mainly for migraines. 4. Hx of spinal stenosis and frequent falls starting 10 years ago. Reports > 6 fractures following falls. Two in left arm, one right arm, left foot, left lower leg, left hip, multiple finger fractures 5. Low back pain shooting to left hip and LE x 6-7 months following a fall with shooting radicular pain radiating to left buttock, hip, thigh stopping mid calf, primarily lateral. [facility] Disclaimer: The information contained in this section may have been updated after the patient was seen, as this information can be updated by other users. Medical History (Updated 12/05/24 @ 19:35 by Sergio Lei MD) Acute respiratory failure with hypoxia H/O fracture of femur Brain aneurysm Multiple sclerosis Acute exacerbation of chronic obstructive airways disease Demyelinating disorder Parkinson disease Surgical History H/O lymph node biopsy H/O left wrist surgery H/O brain surgery Family History Mother Diabetes Coronary artery disease Lupus Father Coronary artery disease Cancer Social History (Updated 12/05/24 @ 17:43 by Shital Spencer RN) Smoking Status: Current every day smoker tobacco type: cigarettes packs per day: 1 alcohol intake: never substance use type: denies use current occupational status: disabled Travel in the last 8 weeks: None household members: other housing: house marital status: Contact w/someone who lives/traveled outside [place] past 30 days?: No Exposure to someone with infectious disease in past 14 days?: No Do you have a fever (greater than 100.4 F or 38 C)?: No Have you tested positive for COVID-19: No Exposed to someone with COVID-19 in past 14 days?: No Do you have a sore throat?: No Do you have a cough?: No Do you have any weakness?: No Are you experiencing any nausea/vomitting?: No Do you have any diarrhea?: No Are you experiencing any unusual bleeding?: No Do you have any muscle aches/pain?: No Do you have any abdominal pain?: No Are you experiencing loss of taste or smell?: No Other Medical History Have you received the Flu Vaccine for this season: No Have you received the Pneumonia Vaccine: No Review of Systems Review of Systems Review of systems (narrative): 14 point review of systems performed, pertinent positives and negatives as per HPI Meds Home Medications and Allergies Home Medications ?Medication ?Instructions ?Recorded ?Confirmed ?Type phenobarbital 16.2 mg tablet 48.6 mg PO HS 03/09/21 12/05/24 History simvastatin 40 mg tablet 40 mg PO HS #30 tabs 07/06/22 12/05/24 Rx albuterol sulfate 90 mcg/actuation 2 inh inhalation Q4HP PRN 12/05/24 12/05/24 History aerosol inhaler Shortness Of Breath clopidogrel 75 mg tablet 75 mg PO DAILY 12/05/24 12/05/24 History paroxetine HCl 40 mg tablet 40 mg PO DAILY 12/05/24 12/05/24 History primidone 50 mg tablet 200 mg PO BID 12/05/24 12/05/24 History tiotropium bromide 2.5 2 puff inhalation DAILY 12/05/24 12/05/24 History mcg/actuation mist for inhalation (Spiriva Respimat) tizanidine 4 mg tablet 4 mg PO QIDP PRN Muscle Spasm 12/05/24 12/05/24 History topiramate 200 mg tablet 200 mg PO BID 12/05/24 12/05/24 History New Prescriptions to Start Prescriptions: Allergies Allergy/AdvReac Type Severity Reaction Status Date / Time fentanyl (FENTANYL) Allergy Unknown ANAPHYLAXIS Verified 07/06/22 13:35 Opioids - Morphine Analogues Allergy Unknown ITCHING-CAN Verified 07/06/22 13:35 (OPIOIDS - MORPHINE TAKE WITH ANALOGUES) BENADRYL PER PT Exam Data for Last 24 hours Vital signs and Labs for Last 24 Hours: Pulse Resp BP Pulse Ox O2 Del Method FiO2 99 H 33 H 84/42 L 94 L BiPAP 60 12/05/24 07:08 12/05/24 07:08 12/05/24 07:08 12/05/24 07:08 12/05/24 07:08 12/05/24 07:20 Constitutional Constitutional: moderate distress, thin, chronically ill appearing, disheveled and cooperative *Routine HEENT Exam Head: Present normocephalic Eye: Present EOMI and PERRL ENT: Present mucous membranes moist *Routine Neck Exam Neck: Present supple; Absent lymphadenopathy *Routine Respiratory Exam Respiratory: Present accessory muscle use, prolonged expiratory phase, rhonchi, crackles and diminished air movement; Absent wheezes Comments: tachypnea *Routine Cardiovascular Exam Cardiovascular: Present tachycardia and irregularly irregular Comments: Having episodes of tachycardia up to the 1 teens with intermittent bradycardia to the 30s that lasts for just a few moments *Routine Abdominal Exam Abdominal: Present soft, normoactive bowel sounds and tenderness (Worsening right upper quadrant) *Routine Rectal Exam Rectal:: deferred *Routine Genitalia Exam Genitalia:: deferred *Routine Extremities Exam Extremities: Absent cyanosis, clubbing or edema *Routine Skin Exam Skin: Present intact and warm; Absent rash *Routine Neurological Exam Neurological: Present alert, oriented X3 and moving all extremities; Absent altered mental status Comments: Fatigued, dyspneic with speech. Assessment and Plan *Assessment and plan (1) Septic shock: Status: Acute Category: Medical Code(s): A41.9 - Sepsis, unspecified organism; R65.21 - Severe sepsis with septic shock (2) NSTEMI (non-ST elevated myocardial infarction): Status: Acute Category: Medical Code(s): I21.4 - Non-ST elevation (NSTEMI) myocardial infarction (3) Pleural effusion: Status: Acute Category: Medical Code(s): J90 - Pleural effusion, not elsewhere classified (4) History of CVA with residual deficit: Status: Acute Category: Medical Code(s): I69.30 - Unspecified sequelae of cerebral infarction (5) Multiple sclerosis: Status: Acute Category: Medical Code(s): G35 - Multiple sclerosis (6) Seizure disorder: Status: Acute Category: Medical Code(s): G40.909 - Epilepsy, unspecified, not intractable, without status epilepticus (7) Demyelinating disorder: Status: Suspected Category: Medical Code(s): G37.9 - Demyelinating disease of central nervous system, unspecified (8) Obstructive pneumonia: Status: Acute Category: Medical Code(s): J18.9 - Pneumonia, unspecified organism (9) Lung mass: Status: Acute Category: Medical Code(s): R91.8 - Other nonspecific abnormal finding of lung field (10) Liver lesion: Status: Acute Category: Medical Code(s): K76.9 - Liver disease, unspecified Plan Ms. Mcgovern is a 69-year-old female who presented to [facility] as a transfer from [facility] due to pleural effusion and elevated troponin. On arrival, patient presentation concerning for septic shock with hypotension, bradycardia necessitating external pacing. Large right-sided effusion. Differential includes malignant versus parapneumonic versus CHF. In critical condition, admitted to the ICU for further management. Patient unstable at this time with prognosis guarded. Cardiology and pulmonology consulted to assist with care. Workup and problems addressed as follows: Septic shock Acute hypoxemic respiratory failure Postobstructive pneumonia Pleural effusion Lung mass with pleural mets Bilateral pulmonary emboli with cor pulmonale -Chest x-ray per my review a large right pleural effusion. Improved after thoracentesis but still has effusion on right side. Left side relatively clear. Concerning for underlying pneumonia. White count elevated at 13.6. Patient tachycardic and hypotensive. -Initially on dopamine, transitioned to Umang-Synephrine for MAP goal greater than 65. -Received sepsis bolus prior to transfer from outside hospital. Will initiate LR at 75 cc an hour with bicarb drip at 50 cc an hour for total maintenance fluids of 125 cc an hour. Patient with metabolic acidosis with low bicarb. -CTA of the chest abdomen and pelvis were obtained. CTA of the chest per my review showing large effusion with masslike density in the right lung. Formal read shows pleural lesions suspicious for metastases. Findings most consistent with lung cancer with pleural metastases. Patient does not want to pursue further workup at this time. -CTA positive as well for bilateral PEs with right heart strain. Initiating hep latonia drip -Continue Vapotherm for goal sats greater 90%. Currently on 30 L 80%. Cachexia Thickening of stomach Liver lesions Abdominal lymphadenopathy -CT of abdomen and pelvis obtained showing 3 lesions on liver concerning for metastases. Distal stomach with thickening of the wall. Has lymphadenopathy in the abdomen along with adrenal lesions. -Will initiate stress dose steroids with hydrocortisone 50 mg every 6 hours in light of hypotension and adrenal lesions -Will attempt p.o. feeds. Zofran as needed every 8 hours for nausea and vomiting -Prerenal state with BUN 29, creatinine 1, repeat CBC, CMP, magnesium ordered for the morning. Repeat BMP this evening to monitor kidney function History of demyelinating disorder/MS -Previous workup with LP over 14 years ago concerning for MS. Patient has not sought any treatment. Having neurologic symptoms, unsteady on feet. No further workup at this time. CT of head shows periventricular findings concerning with chronic small vessel ischemia but consistent with her previous image findings on MRI obtained in 2020 showing findings consistent with MS. History of seizure disorder. Continue phenobarbital 48.6 mg nightly, Topamax 200 mg twice daily History of CAD and PAD: Left foot cool to touch, pulses identified with Doppler. Continue Plavix 75 mg daily. No concern for limb ischemia at this time. Previous femoral stenting. ICU/Critical care attestation This patient is critically ill with 70 minutes devoted solely to this patient managing life/organ supporting interventions that required physician assessment. This includes time spent making adjustments in ventilator settings, IV fluid administration, titration of pressors, adjustments of medications, discussion of patient with consultants and other care providers as well as updating patient and/or family (if patient by virtue of his/her condition is unable to participate in decision making). This does not include time spent performing separately billed procedures. Time is not concurrent with that of other providers.
--- NOTE | 2024-12-05 07:29 | XR_ITS ---
FINAL REPORT CLINICAL HISTORY: Bradycardia COMPARISON: 2 hours prior FINDINGS: A portable view of the chest is obtained. Cardiac and mediastinal silhouettes are normal. There is no change in right lung opacity or right pleural effusion. There is no pneumothorax. IMPRESSION: No change from prior exam. Reviewed, Interpreted and Dictated by Christine Hartman MD Transcribed by Marielena Rodriguez Authenticated and [facility]
[2024-12-05 07:34] LABS: POC Glucose,Bedside 230 (70-110)
--- NOTE | 2024-12-05 08:14 | CA_ITS ---
APPROVED REPORT EXAM: Comprehensive 2D, Doppler, and color-flow Echocardiogram Senior Communications Engineer: Alejandra Harmon CRT Ht: 5 ft 1 in Wt: 14lbs BSA: 0.61 BP: 84/42 mmHg Indications: NSTEMI, CVA/TIA, Non STEMI, CAD, smoker, lupus, sjogrens syndrome, parkinsons, pleural effusion TDE pt flat on back, had external pacer pads on, pad removed during echo. very limited windows. M-Mode Dimensions RVDd 2.08 cm (0.9-2.6) LA Diam 2.81 cm (1.9-4.0) LVDd 2.91 cm (3.5-5.7) LVDs 2.06 cm (3.5-5.7) IVSd 0.86 cm (0.6-1.1) PWd 0.93 cm (0.6-1.1) EF (Teich) 57.80% FS 29.20% EDV (Teich) 32.50 mL ESV (Teich) 13.70 mL LV Diastology E Decel Time 150 (160-240 msec) E/A Ratio 0.9 Aortic Valve AO Peak GR. 9.90 mmHg Mitral Valve MV E Max Wesley. 72.0 (40-130 cm/s) MV A Velocity 80.0 (40-130 cm/s) E/A Ratio 0.90 MV PHT 44.0 ms Pulmonary Valve PV Peak Velocity 66.0 (50-150 cm/s) Tricuspid Valve TR P. Velocity 411.00 cm/s RAP Estimate 10.00 mmHg RVSP 77.70 mmHg Left Ventricle The left ventricle is normal size. The left ventricular systolic function is hyperdynamic. There is increased LV wall thickness. An intracavitary gradient is present. No evidence of LVOT obstruction. There is normal LV segmental wall motion. Diastolic function is indeterminate. LVEF is 70%. Right Ventricle Right ventricle is mildly dilated. The right ventricular systolic function is normal. Atria The left atrium size is normal. The right atrium size is normal. The interatrial septum is not well-visualized. Aortic Valve The aortic valve is mildly thickened. There is no aortic valvular stenosis. No aortic regurgitation is present. Mitral Valve The mitral valve is normal in structure. No evidence of mitral valve stenosis. Mild mitral regurgitation. Tricuspid Valve Tricuspid valve is grossly normal in structure and function. Mild tricuspid regurgitation. RVSP is 35-40 mmHg. Pulmonic Valve The pulmonary valve is normal in structure. Trace pulmonic regurgitation. Great Vessels The aortic root is normal in size. IVC is normal in size and collapses >50% with inspiration. Pericardium There is no pericardial effusion. Other Information Study Quality: Fair Conclusion Hyperdynamic LV systolic function (LVEF 70%). An intracavitary gradient is present in the setting of hyperdynamic LV systolic function. Mild RV dilation with normal RV function. Mild MR, mild TR. Electronically signed by : Carlota Alfred MD 12/05/2024 10:35:00
--- NOTE | 2024-12-05 08:30 | EXP.CCNOTE ---
Critical Care Event Note Summary Code activated: No Narrative: This case had a high probability of a clinically significant, sudden, or life threatening deterioration of this patient's condition which required my full and direct attention, intervention and personal management. Critical care time: 30 - 74 mins [facility] Critical Care Exam Physical Exam Vital signs: Temp Pulse Resp BP Pulse Ox O2 Del Method FiO2 95.8 F L 95 H 35 H 100/65 L 90 L BiPAP 60 12/05/24 07:55 12/05/24 07:25 12/05/24 07:25 12/05/24 07:25 12/05/24 07:25 12/05/24 07:25 12/05/24 07:20 Constitutional Constitutional: Present mild distress, chronically ill appearing and cooperative Routine HEENT Exam Head: Present normocephalic and atraumatic Eye: Present EOMI and PERRL Comments: CPAP in place Routine Respiratory Exam Respiratory: Present accessory muscle use and respiratory distress; Absent able to speak in complete sentences Routine Cardiovascular Exam Cardiovascular: Present tachycardia; Absent JVD Routine Abdominal Exam Abdominal: Present soft; Absent tenderness or distended Routine Extremities Exam Extremities: Present full ROM; Absent cyanosis or edema Routine Neurological Exam Neurological: Present alert, oriented X3 and moving all extremities [facility] Cardiology Procedures Central Line Placement Right IJ: Patient placed on monitor/pulse ox: Yes MD prep: mask, gown, gloves and other (bonnet) Central line prep: Povidone-Iodine 1% and sterile drapes applied Local anesthesia used: lidocaine 1% Amount of anesthesia used (mL): 1 Ultrasound used for placement: Yes Central line lumen inserted: triple Post procedure: sutured in place, good blood return, all ports aspirated, flushed, capped and sterile dressing applied Post procedure x-ray: tip of catheter in good position and no pneumothorax seen Patient tolerated procedure: well and no complications Chest Tube Chest Tube 1: Chest tube location: Lateral Chest Chest tube procedure: Yes sterile drapes applied Tube sutured to skin: No Sterile dressing applied: Yes Anesthesia: 1% Lidocaine Volume anesthetic (mL): 5 Incision made with: #11 blade Tube Drainage: blood Amount of initial drainage (mL): 1,000 Post procedure CXR?: No Patient tolerated procedure: Yes Progress: Safetycentesis kit used for thoracentesis of right thorax. Patient prepped and drepped in sterile manner. Lidocaine injected locally after location determined with ultrasound. 11 blade used to puncture skin. Safetycentesis catheter accessed pleural effusion without complication. 1L bloody, serous fluid drained. Catheter removed and sterile dressing placed. No immediate complications occurred.
--- NOTE | 2024-12-05 08:31 | PC.NURSE ---
pt rectal temperature was obtained reading 95.8. per vitalydevang stone protocol vitaly yoo was placed on pt with temperature to be rechecked hourly. call light is within reach and no needs are voiced at this time.
--- NOTE | 2024-12-05 08:40 | PC.NURSE ---
CRITICAL TROP REPORTED TO
[2024-12-05 08:47] LABS: Adenovirus,PCR Not Detected (NotDetected); Bordetella Pertussis Not Detected (NotDetected); Chlamydophila Pneumoniae, PCR Not Detected (NotDetected); Coronavirus 19, PCR Not Detected (NotDetected); Coronavirus 229E Not Detected (NotDetected); Coronavirus NL63 Not Detected (NotDetected); Coronavirus OC43 Not Detected (NotDetected); Coronovirus HKU1,PCR Not Detected (NotDetected); Human Metapneumovirus Not Detected (NotDetected); Influenza A, PCR Not Detected (NotDetected); Influenza AH1, 2009 Not Detected (NotDetected); Influenza AH1, PCR Not Detected (NotDetected); Influenza AH3,PCR Not Detected (NotDetected); Influenza B, PCR Not Detected (NotDetected); Mycoplasma Pneumoniae, PCR Not Detected (NotDetected); Parainfluenza 1, PCR Not Detected (NotDetected); Parainfluenza 2, PCR Not Detected (NotDetected); Parainfluenza 3, PCR Not Detected (NotDetected); Parainfluenza 4, PCR Not Detected (NotDetected); Respiratory Syncytial Virus Not Detected (NotDetected); Rhinovirus/Enterovirus Not Detected (NotDetected)
[2024-12-05 08:49] LABS: Basophils % 0.1 % (0.1-2.0); Hematocrit 31.8 % (37.0-47.0); Hemoglobin 10.2 g/dL (12.2-16.2); Lymphocytes # 0.7 K/mm3 (0.7-4.5); Lymphocytes % 4.9 % (10-50); Mean Corpuscular HGB Conc 32.1 g/dL (31.8-35.4); Mean Corpuscular Hemoglobin 31.9 pg (27.0-31.2); Mean Corpuscular Volume 99.4 fl (81-99); Mean Platelet Volume 10.5 fl (7.4-10.4); Monocytes # 0.9 K/mm3 (0.1-1.0); Monocytes % 6.8 % (1.7-9.3); Neutrophils # 11.9 K/mm3 (1.8-7.8); Neutrophils % 87.1 % (37.0-80.0); Platelet Count 169 K/mm3 (142-424); Red Cell Distribution Width 13.4 % (11.5-17.5); White Blood Count 13.6 K/mm3 (4.8-10.8)
[2024-12-05 09:10] LABS: Albumin Level 2.6 g/dl (3.5-5.0); Chloride 117 mmol/L (98-107); Potassium 3.6 mmoL/L (3.5-5.1); Sodium 144 mmol/L (136-145)
[2024-12-05 09:12] LABS: Alanine Aminotransferase 25 U/L (12-78); Anion Gap 9.6 mEq/L (5-15); Aspartate Amino Transferase 35 U/L (14-36); Blood Urea Nitrogen 29 mg/dl (7-17); Carbon Dioxide 21 mmol/L (22.0-30.0); Creatinine Clearance Estimated 39 mL/min (50-200); Estimated Glomerular Filt Rate 55 ml/min (>60); GFR (African American) 66 ML/MIN (>60)
[2024-12-05 09:13] LABS: Albumin/Globulin Ratio 0.9 (1.1-1.8); Alkaline Phosphatase 85 U/L (38-126); Bilirubin,Total 0.3 mg/dl (0.2-1.3); Calcium 7.6 mg/dl (8.4-10.2); Cholesterol 191 mg/dl (140-200); Glucose 209 mg/dl (74-100); Magnesium 2.1 mg/dl (1.6-2.3); Phosphorous 4.6 mg/dl (2.5-4.5); Total Protein,Serum 5.6 g/dl (6.3-8.2); Triglycerides 134 mg/dl (30-150); VLDL Cholesterol 27 mg/dL (0-40)
[2024-12-05 09:14] LABS: Chol/HDL Ratio 4.5 (1-3.5); HDL Cholesterol 42 mg/dl (40-60)
[2024-12-05 09:24] LABS: Direct LDL Cholesterol 96.44 mg/dL (100-129)
--- NOTE | 2024-12-05 09:37 | PC.NURSE ---
pt appeared to have unstable rhythm on school lunch monitor ranging from bradycardic at HR of 45 to sinus tach of 121. EKG order placed and RT at bedside for EKG. EKG given to provider
--- NOTE | 2024-12-05 09:38 | ECG_ITS ---
APPROVED REPORT Exam: Resting ECG HR:111 bpm ECG Measurements Heart Rate 111 AXES MI 107 P 69 QRSd 106 QRS 70 QT 363 T 43 QTc 429 Conclusion SINUS TACHYCARDIA WITH SHORT MI INTERVAL and delta wave appearance in multiple leads - consider WPW MODERATE ST DEPRESSION [0.05+ mV ST DEPRESSION] ABNORMAL ECG UNCONFIRMED REPORT Electronically signed by : Cornel Gaona MD 12/06/2024 16:11:33
[2024-12-05 09:42] LABS: Troponin I 0.38 ng/ml (0.00-0.034)
--- NOTE | 2024-12-05 09:46 | CT_ITS ---
FINAL REPORT TECHNIQUE: Thin section axial images are obtained through the abdomen and pelvis after intravenous contrast. Reconstruction images were obtained from the axial data. Exam was performed using dose reduction techniques. CLINICAL HISTORY: abdominal pain COMPARISON: None FINDINGS: LIVER: There are multiple heterogeneous lesions in the right lobe of the liver, likely metastases. The largest measures 27 mm. GALLBLADDER/BILIARY SYSTEM: Gallbladder is present. No gallstones. No biliary dilatation. SPLEEN: Unremarkable. PANCREAS: Unremarkable. ADRENALS: Bilateral adrenal nodules concerning for metastases. Right nodule measures 26 mm and left nodule measures 24 mm. KIDNEYS/URETERS/BLADDER: No hydronephrosis, renal mass, or renal stone. Unremarkable urinary bladder. GI TRACT: There is wall thickening of the pylorus. Mild gaseous distention of the stomach is noted. There is no evidence of small-bowel obstruction. Appendix is not seen. Mild distention of the proximal portions of the colon with fluid and gas. Remaining GI tract is without acute abnormality. PELVIC ORGANS: Uterus is present. LYMPH NODES/RETROPERITONEUM/MESENTERY: Enlarged lymph nodes noted in the celiac region measuring up to 20 mm. Small retroperitoneal lymph nodes are noted. Advanced atherosclerotic disease is noted of the inferior abdominal aorta. ABDOMINAL WALL: The abdominal wall is intact. FREE FLUID: No ascites. BONES: No acute osseous abnormality. IMPRESSION: Liver lesions consistent with metastases. Adrenal masses and upper abdominal lymphadenopathy consistent with metastases. Wall thickening of the distal most stomach with distention of the stomach, consider EGD. Reviewed, Interpreted and Dictated by Christine Hartman MD Transcribed by Marianne Wylie Authenticated and [facility]
--- NOTE | 2024-12-05 10:17 | P.CONS_ITS ---
History of Present Illness History of present illness: Ms. Mcgovern is a 69-year-old female transferred from an outside hospital with concerns for NSTEMI on admission also found to have a large right pleural effusion. Pulmonary was called for further evaluation and management. [facility] Disclaimer: The information contained in this section may have been updated after the patient was seen, as this information can be updated by other users. Medical History (Updated 12/05/24 @ 15:44 by Ivy Sanchez MD) Acute respiratory failure with hypoxia H/O fracture of femur Brain aneurysm Multiple sclerosis Acute exacerbation of chronic obstructive airways disease Demyelinating disorder Parkinson disease Surgical History H/O lymph node biopsy H/O left wrist surgery H/O brain surgery Family History Mother Diabetes Coronary artery disease Lupus Father Coronary artery disease Cancer Social History Smoking Status: Current every day smoker tobacco type: cigarettes packs per day: 1 alcohol intake: never substance use type: denies use current occupational status: disabled Travel in the last 8 weeks: None household members: other housing: house marital status: Review of Systems Review of Systems Review of systems (narrative): Poor historian Constitutional Constitutional: Reports anorexia, Reports body ache(s) and Reports fatigue Eyes Eyes: Denies eye discharge, Denies dry eyes, Denies irritation and Denies itchy eyes ENT Ears, Nose, Mouth, and Throat: Denies epistaxis, Denies facial pain, Denies lip swelling and Denies throat swelling *Cardiovascular Cardiovascular: Reports dyspnea, Reports dyspnea on exertion and Reports orthopnea *Respiratory Respiratory: Reports chest congestion, Reports cough, Reports dyspnea, Reports dyspnea on exertion and Reports excessive phlegm production *Gastrointestinal Gastrointestinal: Denies abdominal pain, Denies belching and Denies cramping Psychiatric Psychiatric: Denies homicidal ideation and Denies suicidal ideation Endocrine Endocrine: Reports fatigue and Denies heat intolerance Hematologic/Lymphatic Hematologic/Lymphatic: Denies easy bleeding and Denies lymphadenopathy Allergic/Immunologic Allergic/Immunologic: Denies itchy eyes, Denies lip swelling and Denies throat swelling Pulmonology Exam Inpatient Vital signs and Labs for Last 24 Hours: Temp Pulse Resp BP Pulse Ox O2 Del Method O2 Flow Rate 95.8 F L 117 H 27 H 108/66 L 92 L Nasal Cannula 5 12/05/24 07:55 12/05/24 09:00 12/05/24 09:00 12/05/24 09:00 12/05/24 09:28 12/05/24 09:28 12/05/24 09:28 FiO2 60 12/05/24 07:20 Laboratory Results - last 24 hr 12/05/24 07:27: POC Glucose 230 H 12/05/24 08:30: WBC 13.6 H, RBC 3.20 L, Hgb 10.2 L, Hct 31.8 L, MCV 99.4 H, MCH 31.9 H, MCHC 32.1, RDW 13.4, Plt Count 169, MPV 10.5 H, Neut % (Auto) 87.1 H, L ymph % (Auto) 4.9 L, [place] % (Auto) 6.8, Eos % (Auto) 0.0 L, Baso % (Auto) 0.1, N eut # (Auto) 11.9 H, Lymph # (Auto) 0.7, [place] # (Auto) 0.9, Eos # (Auto) 0.0, Baso # (Auto) 0.0, Sodium 144, Potassium 3.6, Chloride 117 H, Carbon Dioxide 21 L, Anion Gap 9.6, BUN 29 H, Creatinine 1.00, Estimated Creat Clear 39, Estimated GFR 55 L, Est GFR ( Amer) 66, Glucose 209 H, Calcium 7.6 L, Phosphorus 4.6 H, Magnesium 2.1, Total Bilirubin 0.3, AST 35, ALT 25, Alkaline Phosphatase 85, Troponin I 0.38 H, Total Protein 5.6 L, Albumin 2.6 L, Globulin 3.0, A lbumin/Globulin Ratio 0.9 L, Triglycerides 134, Cholesterol 191, LDL Cholesterol Direct 96.44 L, VLDL Cholesterol 27, HDL Cholesterol 42, Cholesterol/HDL Ratio 4.5 H I & O for Labs for Last 24 Hours: Intake & Output 12/02/24 12/03/24 12/04/24 12/05/24 23:59 23:59 23:59 23:59 Weight 103 lb 5 oz Constitutional: Present severe distress Head: Present normocephalic and atraumatic ENT: Present normal exam, normal oropharynx and mucous membranes moist Neck: Present normal inspection and full ROM Respiratory: Present respiratory distress and rhonchi; Absent wheezes, normal respiratory effort or able to speak in complete sentences Cardiac: Present Bradycardia and radial pulses present; Absent Regular Rhythm or S1/S2 GI: Present soft and distention; Absent tenderness or guarding Rectal (female): Present deferred (female): Present deferred Skin: Present intact; Absent cyanosis or jaundice Neuro: Present alert, awake and oriented x 3 Extremities: Present normal inspection; Absent clubbing or cyanosis Psychiatric: Present normal affect and cooperative Meds Home Medications and Allergies Home Medications ?Medication ?Instructions ?Recorded ?Confirmed ?Type phenobarbital 16.2 mg tablet 48.6 mg PO HS 03/09/21 12/05/24 History simvastatin 40 mg tablet 40 mg PO HS #30 tabs 07/06/22 12/05/24 Rx albuterol sulfate 90 mcg/actuation 2 inh inhalation Q4HP PRN 12/05/24 12/05/24 History aerosol inhaler Shortness Of Breath clopidogrel 75 mg tablet 75 mg PO DAILY 12/05/24 12/05/24 History paroxetine HCl 40 mg tablet 40 mg PO DAILY 12/05/24 12/05/24 History primidone 50 mg tablet 200 mg PO BID 12/05/24 12/05/24 History tiotropium bromide 2.5 2 puff inhalation DAILY 12/05/24 12/05/24 History mcg/actuation mist for inhalation (Spiriva Respimat) tizanidine 4 mg tablet 4 mg PO QIDP PRN Muscle Spasm 12/05/24 12/05/24 History topiramate 200 mg tablet 200 mg PO BID 12/05/24 12/05/24 History New Prescriptions to Start Prescriptions: Allergies Allergy/AdvReac Type Severity Reaction Status Date / Time fentanyl (FENTANYL) Allergy Unknown ANAPHYLAXIS Verified 07/06/22 13:35 Opioids - Morphine Analogues Allergy Unknown ITCHING-CAN Verified 07/06/22 13:35 (OPIOIDS - MORPHINE TAKE WITH ANALOGUES) BENADRYL PER PT Results Laboratory Findings 12/05/24 08:30 12/05/24 08:30 Abnormal lab findings: Abnormal Labs 12/05/24 12/05/24 07:27 08:30 WBC 13.6 H RBC 3.20 L Hgb 10.2 L Hct 31.8 L MCV 99.4 H MCH 31.9 H MPV 10.5 H Neut % (Auto) 87.1 H Lymph % (Auto) 4.9 L Eos % (Auto) 0.0 L Neut # (Auto) 11.9 H Chloride 117 H Carbon Dioxide 21 L BUN 29 H Estimated GFR 55 L Glucose 209 H POC Glucose 230 H Calcium 7.6 L Phosphorus 4.6 H Troponin I 0.38 H Total Protein 5.6 L Albumin 2.6 L Albumin/Globulin Ratio 0.9 L LDL Cholesterol Direct 96.44 L Cholesterol/HDL Ratio 4.5 H Assessment and Plan *Assessment and plan (1) Septic shock: Status: Acute Category: Medical Code(s): A41.9 - Sepsis, unspecified organism; R65.21 - Severe sepsis with septic shock (2) Lung nodule: Status: Acute Category: Medical Code(s): R91.1 - Solitary pulmonary nodule (3) Pleural effusion: Status: Acute Category: Medical Code(s): J90 - Pleural effusion, not elsewhere classified (4) Acute respiratory failure with hypoxia: Status: Acute Category: Medical Code(s): J96.01 - Acute respiratory failure with hypoxia Plan Ms. Mcgovern is a 69-year-old female transferred from an outside hospital with concerns for NSTEMI on admission also found to have a large right pleural effusion. Pulmonary was called for further evaluation and management. It appears that patient had thoracentesis performed with removal of 1 L of blood-tinged fluid. Will follow-up with the results. Patient also has a history of 2 cm right lower lobe lesion on her CT from January 2022. No subsequent imaging available to review. Also has reported H/O of SLE with multiple hospitalizations secondary to organ failure, history of CVA in 2018, seizure disorder spinal stenosis with frequent falls. Labs on admission neutrophilic predominant leukocytosis. Afebrile. Hemodynamically stable. COVID-19 and flu PCR panel negative. BUN at 29 and creatinine 1.0 Chest x-ray obtained personally send this is significant improvement in the noted effusion. Continue to show dense right lower lobe consolidative changes. Patient on broad-spectrum antibiotics including vancomycin and cefepime. Cefepime. Also needing vasopressor support to maintain her maps greater than 65. Lt LE swelling > Rt LE Plan: -Continue vancomycin and Zosyn pending sputum pleural fluid and blood culture results -NickolasoNebs every 6 hours scheduled -Follow-up with final pleural fluid studies -Stress to steroids with hydrocortisone 50 mg IV every 6 hours -Continue vasopressor support to maintain MAP goal of greater than 65 on phenylephrine as per cardiology recommendations. -She continues to be having intermittent episodes of symptomatic bradycardia. Cardiology following -F/U CTA PE protocol and CT head and Abd
[2024-12-05 10:36] LABS: Appearance,Body Fld. Bloody; Source, Body Fld. Thoracentesis Fluid; Volume,Body Fld. 5 mL
[2024-12-05 10:37] LABS: ABG Base Excess -7.9 mmol/L (-2.4-2.3); ABG HCO3 17.1 mmhg (22.0-26.0); ABG Oxygen Saturation 85 % (90-100); ABG PCO2 29.2 mmhg (35.0-45.0); ABG PH 7.39 mmol/L (7.35-7.45); ABG PO2 54.4 mmhg (80-100); Lactate Arterial 1.3 mmol/L (0.4-2.0)
--- NOTE | 2024-12-05 10:45 | PC.NURSE ---
pt noted to kamla down on nurses station monitor. this nurse immediately to pt bedside. on assessment pt is combs in color and stated i dont feel well hospitalist and Toy in cardiology to bedside. pt remains alert and oriented at this time. MD gave emergent verbal order to switch from dopamine to levofed at this time. pt heart rate increased to 92bpm while nurse at bedside. pt reports feeling better. pt remains on Zoll.
[2024-12-05] MEDS: NOREPINEPHRINE BITARTRATE/D5W 8 MG/250 ML PLAST..BAG 3.75 MG IV (10:46)
[2024-12-05 11:12] LABS: Allen's Test ACCEPTABLE; Oxygen 50 %
[2024-12-05 11:13] LABS: Source Left Radial
--- NOTE | 2024-12-05 11:19 | EXP.PHA.CONS ---
Pharmacy Consult Date: 12/05/24 Time: 11:21 Referring provider: DR COTE Reason for Consult:: VANCOMYCIN DOSING CONSULT Allergies Allergy/AdvReac Type Severity Reaction Status Date / Time fentanyl (FENTANYL) Allergy Unknown ANAPHYLAXIS Verified 07/06/22 13:35 Opioids - Morphine Analogues Allergy Unknown ITCHING-CAN Verified 07/06/22 13:35 (OPIOIDS - MORPHINE TAKE WITH ANALOGUES) BENADRYL PER PT Home Medications ?Medication ?Instructions ?Recorded ?Confirmed ?Type phenobarbital 16.2 mg tablet 48.6 mg PO HS 03/09/21 12/05/24 History simvastatin 40 mg tablet 40 mg PO HS #30 tabs 07/06/22 12/05/24 Rx albuterol sulfate 90 mcg/actuation 2 inh inhalation Q4HP PRN 12/05/24 12/05/24 History aerosol inhaler Shortness Of Breath clopidogrel 75 mg tablet 75 mg PO DAILY 12/05/24 12/05/24 History paroxetine HCl 40 mg tablet 40 mg PO DAILY 12/05/24 12/05/24 History primidone 50 mg tablet 200 mg PO BID 12/05/24 12/05/24 History tiotropium bromide 2.5 2 puff inhalation DAILY 12/05/24 12/05/24 History mcg/actuation mist for inhalation (Spiriva Respimat) tizanidine 4 mg tablet 4 mg PO QIDP PRN Muscle Spasm 12/05/24 12/05/24 History topiramate 200 mg tablet 200 mg PO BID 12/05/24 12/05/24 History New Prescriptions to Start Prescriptions: Height: 1.55 m Weight: 46.862 kg Laboratory Results:: Laboratory Results - last 24 hr 12/05/24 07:27: POC Glucose 230 H 12/05/24 08:07: Fluid Source Thoracentesis fluid, Fluid Volume 5, Fluid Appearance Bloody 12/05/24 08:30: WBC 13.6 H, RBC 3.20 L, Hgb 10.2 L, Hct 31.8 L, MCV 99.4 H, MCH 31.9 H, MCHC 32.1, RDW 13.4, Plt Count 169, MPV 10.5 H, Neut % (Auto) 87.1 H, Lymph % (Auto) 4.9 L, [place] % (Auto) 6.8, Eos % (Auto) 0.0 L, Baso % (Auto) 0.1, Neut # (Auto) 11.9 H, Lymph # (Auto) 0.7, [place] # (Auto) 0.9, Eos # (Auto) 0.0, Baso # (Auto) 0.0, Sodium 144, Potassium 3.6, Chloride 117 H, Carbon Dioxide 21 L, Anion Gap 9.6, BUN 29 H, Creatinine 1.00, Estimated Creat Clear 39, Estimated GFR 55 L, Est GFR ( Amer) 66, Glucose 209 H, Calcium 7.6 L, Phosphorus 4.6 H, Magnesium 2.1, Total Bilirubin 0.3, AST 35, ALT 25, Alkaline Phosphatase 85, Troponin I 0.38 H, Total Protein 5.6 L, Albumin 2.6 L, Globulin 3.0, Albumin/Globulin Ratio 0.9 L, Triglycerides 134, Cholesterol 191, LDL Cholesterol Direct 96.44 L, VLDL Cholesterol 27, HDL Cholesterol 42, Cholesterol/HDL Ratio 4.5 H 12/05/24 10:26: Specimen Source Left radial, O2 % 50, ABG pH 7.39, ABG pCO2 29.2 L, ABG pO2 54.4 L, ABG HCO3 17.1 L, ABG Total CO2 18.0 L, ABG O2 Saturation 85 L*, ABG Base Excess -7.9 L, Clive Test Acceptable, ABG Lactate 1.3 Medical History: Medical History (Updated 12/05/24 @ 07:29 by Sergio Cote MD) H/O fracture of femur Brain aneurysm Multiple sclerosis Acute exacerbation of chronic obstructive airways disease Demyelinating disorder Parkinson disease Assessment and Plan Assessment and plan all Dx Assessment and Plan for all problems:: Pharmacokinetic dosing service Objective: Age: 69 yo Serum creatinine: 1 mg/dL Height: 61.0 Inches Weight (kg): 46.862 Diagnosis: SEPSIS Assessment: IBW (kg): 47.80 Dosing wt(kg): 46.862 Estimated Creatinine clearance (ml/min): 38.7 CRCL method: Cockcroft and Gault using ibw(default). Drug selected: Vancomycin Loading dose (mg): 1000 MG Vd (liters): 35.1 (factor used: 0.75 L/kg) [place] (hr-1): 0.037 Half life (hrs): 18.73 CLvanco=?? 1.299 L/hr Recommended dose: 750 mg Interval: 24 hrs Infusion time (hrs): 2.0 Predicted peak (mcg/mL): 35.0 Predicted trough (mcg/mL): 15.51 Total body weight is being used for vancomycin dosing. Recommendations: Give Vancomycin 750 mg q 24 hrs with an expected Cpeak of 35.0 mcg/ml and an expected Ctrough of 15.51 mcg/ml TO START 12/06/24 AT 1100. PATIENT RECEIVED ONE TIME LOADING DOSE OF VANCOMYCIN 1000 MG ONCE 12/05/24 AT 11:00. AUC 0-24 /HEIDI Data: HEIDI 0.5 mcg/mL:?? AUC/HEIDI:? 1154.7 HEIDI 1.0 mcg/mL:?? AUC/HEIDI:? 577.4 --------- HEIDI 1.5 mcg/mL:?? AUC/HEIDI:? 384.9 HEIDI 2.0 mcg/mL:?? AUC/HEIDI:? 288.7 Thank you for the consult
--- NOTE | 2024-12-05 11:48 | PC.NURSE ---
Dr. Staples to bedside for pt evaluation. MD gave orders to stop the levo and start a neosynephrine drip to increase pt afterload. pharmacy notified.
[2024-12-05] MEDS: LACTATED RINGERS 1000ML 1,000 ML 75 ML IV (11:55)
[2024-12-05] MEDS: PHENYLEPHRINE HCL 10 MG in 0.9 % SODIUM CHLORIDE 250 ML 60.24 MG IV (12:02)
[2024-12-05] MEDS: SODIUM BICARBONATE 150 MEQ in 0.9 % SODIUM CHLORIDE 1000ML 1,000 ML 50 MEQ IV (12:13)
[2024-12-05] MEDS: CLOPIDOGREL 75MG TAB 75 MG PO (12:17)
[2024-12-05] MEDS: PIPERCILLIN/TAZO 3.375 GM in 0.9 % SODIUM CHLORIDE 50 ML IV ×2 (12:19→18:06)
--- NOTE | 2024-12-05 12:19 | XR_ITS ---
FINAL REPORT CLINICAL HISTORY: Evaluation of pleural effusion COMPARISON: 12/05/2024 7:13 AM FINDINGS: A single PA view of the chest was obtained. The exam of the right hemithorax is overall limited by EKG wires on the right chest. A right internal jugular central line is again noted, stable. The cardiac and mediastinal silhouettes are within normal limits. There has been an interval decrease in size of the right pleural effusion since the earlier exam. Right basilar airspace disease is improved. No gross pneumothorax is identified. IMPRESSION: Limited by overlying EKG wires overlying right chest wall. No gross pneumothorax. Interval decrease in size of the right pleural effusion. Reviewed, Interpreted and Dictated by Christine Hartman MD Transcribed by Elham Sykes Authenticated and [facility]
[2024-12-05 12:41] LABS: RBC,Body Fluid 157 cells/uL (< 10 X 10^3); TNC,Body Fluid 1643 cells/uL (< 1000)
--- NOTE | 2024-12-05 12:49 | CT_ITS ---
FINAL REPORT TECHNIQUE: Thin section axial images were obtained from skull base to vertex without contrast. Coronal reconstruction images were obtained from the axial data. Exam was performed using dose reduction techniques such as automated exposure control, adjustment of the mA and kV according to patient size, and use of iterative reconstruction technique. CLINICAL HISTORY: eval for stroke, mets COMPARISON: 06/26/2024 FINDINGS: No mass effect or midline shift. There is streak artifact secondary to embolization coils again seen in the expected region of the anterior communicating artery. No intracranial hemorrhage. No hydrocephalus. Periventricular low density is likely related to changes of chronic small vessel ischemia. The basilar cisterns are preserved. The posterior fossa is without acute abnormality. The soft tissues are without acute abnormality. No acute osseous abnormality is identified. IMPRESSION: No acute intracranial abnormality. Changes suggesting chronic small vessel ischemia. Reviewed, Interpreted and Dictated by Christine Hartman MD Transcribed by Elham Sykes Authenticated and [facility]
[2024-12-05] MEDS: VANCOMYCIN HCL 1,000 MG in 0.9 % SODIUM CHLORIDE 250 ML 125 MG IV (12:50)
[2024-12-05 13:12] LABS: ABG PCO2 36.6 mmhg (35.0-45.0); ABG PH 7.32 mmol/L (7.35-7.45)
[2024-12-05 13:13] LABS: ABG Base Excess -7.1 mmol/L (-2.4-2.3); ABG HCO3 18.7 mmhg (22.0-26.0); ABG Oxygen Saturation 90 % (90-100); ABG PO2 69.5 mmhg (80-100); ABG TCO2 19.2 mmhg (23-27); Allen's Test Acceptable; Oxygen 100% %; Source Right Brachial
[2024-12-05] MEDS: HYDROCORTISONE SOD SUCCINATE 100MG VIAL 50 MG IV (13:21)
--- NOTE | 2024-12-05 14:16 | EXP.CARD.CON ---
History of Present Illness History of Present Illness Consult date: 12/05/24 Chief complaint: weakness, soa History of present illness: 69-year-old white female with cardiac history including CAD status post stenting, bilateral femoral artery stenting, right toe amputation, and symptomatic bradycardia for approximately 8 years. Of note she also has SLE, Sjogren's, MS, Hx of CVA, Hx of Pk-Dz, and historically nonadherent to treatment plans. She presented to [facility] ER yesterday with weakness and SOA. Found there to be in resp failure, sepsis criteria, elevated troponin, bradycardia to the 20s. After a call with Dr. Staples patient was transferred to this facility for further management. She arrived here with large right pleural effusion, hypotensive on pressors, high flow oxygen, transcutaneous pacing. She received a right sided thoracentesis with approximately 1 L of blood-tinged liquid drained by the ER Physician. There is an underlying mass in this region concerning for neoplasm. She remained on Dopamine with PRN transcutaneous pacing. There were no ST elevations noted on EKG. On my arrival to the ICU, transcutaneous pacemaker is off and she is sinus rhythm in the 90s. She complains of shortness of breath and fatigue. While in the ICU patient had transient heart block with junctional escape to the 30s noted on telemetry. Pt was immediately attended to by her nurse who states pt was somnolent with grayish discoloration. On my arrival to the room seconds later her symptoms were resolving and HR improved to 90s. Patient told me this has happened for many years. States she was told she needed a pacemaker 8 years ago but she declined this. She has had numerous falls and recurrent syncope at home. Stat 2D echo performed and shows a hyperdynamic LV function greater than 70% with outflow tract gradient. Decision was made to transition to Umang-Synephrine and add volume with hydration. [facility] Disclaimer: The information contained in this section may have been updated after the patient was seen, as this information can be updated by other users. Medical History H/O fracture of femur Brain aneurysm Multiple sclerosis Acute exacerbation of chronic obstructive airways disease Demyelinating disorder Parkinson disease Surgical History H/O lymph node biopsy H/O left wrist surgery H/O brain surgery Family History Mother Diabetes Coronary artery disease Lupus Father Coronary artery disease Cancer Social History Smoking Status: Current every day smoker tobacco type: cigarettes packs per day: 1 alcohol intake: never substance use type: denies use current occupational status: disabled Travel in the last 8 weeks: None household members: other housing: house marital status: Review of Systems Review of Systems Review of systems:: unable to obtain Constitutional Constitutional: Denies weakness Eyes Eyes: Denies loss of vision ENT Ears, Nose, Mouth, and Throat: Denies hearing loss and Denies vertigo *Cardiovascular Cardiovascular: Denies chest pain, Denies dyspnea and Denies syncope *Respiratory Respiratory: Denies cough and Denies dyspnea *Gastrointestinal Gastrointestinal: Denies change in stool character, Denies nausea and Denies vomiting *Musculoskeletal Musculoskeletal: Denies muscle weakness Integumentary/Breasts Skin/Breast: Denies changing lesions *Neurologic Neurologic: Denies loss of vision, Denies syncope, Denies vertigo and Denies weakness Exam Data for Last 24 hours Vital signs and Labs for Last 24 Hours: Temp Pulse Resp BP Pulse Ox O2 Del Method O2 Flow Rate 96.3 F L 88 29 H 102/59 L 92 L Vapotherm 30 12/05/24 10:16 12/05/24 14:00 12/05/24 14:00 12/05/24 14:00 12/05/24 14:00 12/05/24 14:11 12/05/24 14:11 FiO2 80 12/05/24 14:11 Laboratory Results - last 24 hr 12/05/24 07:00: Specimen Source Right brachial, O2 % 100%, ABG pH 7.32 L, ABG pCO2 36.6, ABG pO2 69.5 L, ABG HCO3 18.7 L, ABG Total CO2 19.2 L, ABG O2 Saturation 90, ABG Base Excess -7.1 L, Clive Test Acceptable 12/05/24 07:27: POC Glucose 230 H 12/05/24 08:07: Fluid Source Thoracentesis fluid, Fluid Volume 5, Fluid Appearance Bloody, Fluid RBC (Auto) 157, Fld Tot Nucleated Cell 1643 12/05/24 08:28: Chlamy pneumoniae PCR Not detected, Adenovirus (PCR) Not detected, B. pertussis DNA (PCR) Not detected, Coronavirus OC43 (PCR) Not detected, Coronavirus HKU1 (PCR) Not detected, Coronavirus 229E (PCR) Not detected, SARS-CoV-2 (PCR) Not detected, Coronavirus NL63 (PCR) Not detected, Human Metapneumovir PCR Not detected, Influenza A (H1) PCR Not detected, Influ A (H1N1/09) PCR Not detected, Influenza A (H3) PCR Not detected, Influenza Type A (PCR) Not detected, Influenza Type B (PCR) Not detected, M. pneumoniae (PCR) Not detected, Parainfluenza 1 (PCR) Not detected, Parainfluenza 2 (PCR) Not detected, Parainfluenza 3 (PCR) Not detected, Parainfluenza 4 (PCR) Not detected, RSV (PCR) Not detected, Entero/Rhino (PCR) Not detected 12/05/24 08:30: WBC 13.6 H, RBC 3.20 L, Hgb 10.2 L, Hct 31.8 L, MCV 99.4 H, MCH 31.9 H, MCHC 32.1, RDW 13.4, Plt Count 169, MPV 10.5 H, Neut % (Auto) 87.1 H, Lymph % (Auto) 4.9 L, [place] % (Auto) 6.8, Eos % (Auto) 0.0 L, Baso % (Auto) 0.1, Neut # (Auto) 11.9 H, Lymph # (Auto) 0.7, [place] # (Auto) 0.9, Eos # (Auto) 0.0, Baso # (Auto) 0.0, Sodium 144, Potassium 3.6, Chloride 117 H, Carbon Dioxide 21 L, Anion Gap 9.6, BUN 29 H, Creatinine 1.00, Estimated Creat Clear 39, Estimated GFR 55 L, Est GFR ( Amer) 66, Glucose 209 H, Calcium 7.6 L, Phosphorus 4.6 H, Magnesium 2.1, Total Bilirubin 0.3, AST 35, ALT 25, Alkaline Phosphatase 85, Troponin I 0.38 H, Total Protein 5.6 L, Albumin 2.6 L, Globulin 3.0, Albumin/Globulin Ratio 0.9 L, Triglycerides 134, Cholesterol 191, LDL Cholesterol Direct 96.44 L, VLDL Cholesterol 27, HDL Cholesterol 42, Cholesterol/HDL Ratio 4.5 H, TSH 1.40 12/05/24 10:26: Specimen Source Left radial, O2 % 50, ABG pH 7.39, ABG pCO2 29.2 L, ABG pO2 54.4 L, ABG HCO3 17.1 L, ABG Total CO2 18.0 L, ABG O2 Saturation 85 L*, ABG Base Excess -7.9 L, Clive Test Acceptable, ABG Lactate 1.3 I & O for Last 24 hours: Intake & Output 12/02/24 12/03/24 12/04/24 12/05/24 23:59 23:59 23:59 23:59 Intake Total 305.26 / 305.26 Balance 305.26 / 305.26 Weight 103 lb 5 oz Constitutional Constitutional: moderate distress, chronically ill appearing and cooperative *Routine HEENT Exam Eye: Present PERRL *Routine Respiratory Exam Respiratory: Present accessory muscle use; Absent wheezes or crackles Comments: on high flow o2 *Routine Cardiovascular Exam Cardiovascular: Present RRR, Normal S1 and Normal S2; Absent murmur, gallop or rubs *Routine Abdominal Exam Abdominal: Present soft; Absent tenderness *Routine Extremities Exam Extremities: Present pulses intact; Absent cyanosis or edema *Routine Skin Exam Skin: Present intact; Absent erythema or wounds *Routine Neurological Exam Neurological: Present alert and oriented X3 Routine Psychiatric Exam Psychiatric: Present cooperative Meds Home Medications and Allergies Home Medications ?Medication ?Instructions ?Recorded ?Confirmed ?Type phenobarbital 16.2 mg tablet 48.6 mg PO HS 03/09/21 12/05/24 History simvastatin 40 mg tablet 40 mg PO HS #30 tabs 07/06/22 12/05/24 Rx albuterol sulfate 90 mcg/actuation 2 inh inhalation Q4HP PRN 12/05/24 12/05/24 History aerosol inhaler Shortness Of Breath clopidogrel 75 mg tablet 75 mg PO DAILY 12/05/24 12/05/24 History paroxetine HCl 40 mg tablet 40 mg PO DAILY 12/05/24 12/05/24 History primidone 50 mg tablet 200 mg PO BID 12/05/24 12/05/24 History tiotropium bromide 2.5 2 puff inhalation DAILY 12/05/24 12/05/24 History mcg/actuation mist for inhalation (Spiriva Respimat) tizanidine 4 mg tablet 4 mg PO QIDP PRN Muscle Spasm 12/05/24 12/05/24 History topiramate 200 mg tablet 200 mg PO BID 12/05/24 12/05/24 History New Prescriptions to Start Prescriptions: Allergies Allergy/AdvReac Type Severity Reaction Status Date / Time fentanyl (FENTANYL) Allergy Unknown ANAPHYLAXIS Verified 07/06/22 13:35 Opioids - Morphine Analogues Allergy Unknown ITCHING-CAN Verified 07/06/22 13:35 (OPIOIDS - MORPHINE TAKE WITH ANALOGUES) BENADRYL PER PT Assessment and Plan *Assessment and plan (1) Pleural effusion: Status: Acute Category: Medical Code(s): J90 - Pleural effusion, not elsewhere classified (2) NSTEMI (non-ST elevated myocardial infarction): Status: Acute Category: Medical Code(s): I21.4 - Non-ST elevation (NSTEMI) myocardial infarction (3) Septic shock: Status: Acute Category: Medical Code(s): A41.9 - Sepsis, unspecified organism; R65.21 - Severe sepsis with septic shock (4) History of CVA with residual deficit: Status: Acute Category: Medical Code(s): I69.30 - Unspecified sequelae of cerebral infarction (5) Multiple sclerosis: Status: Acute Category: Medical Code(s): G35 - Multiple sclerosis (6) Seizure disorder: Status: Acute Category: Medical Code(s): G40.909 - Epilepsy, unspecified, not intractable, without status epilepticus (7) Demyelinating disorder: Status: Suspected Category: Medical Code(s): G37.9 - Demyelinating disease of central nervous system, unspecified (8) Junctional bradycardia: Status: Acute Category: Medical Code(s): R00.1 - Bradycardia, unspecified Plan Symptomatic Junctional Bradycardia - HR to 30s with narrow complex QRS, AMS and palor - episodes last seconds and resolve spontaneously - symptomatic with syncope for 8 years but in setting of MS/SLE/PK-DZ/CVAs - suspicious for baseline transient heart block which is exacerbated by her current hyperdynamic LV with outflow tract obstruction - change Levo to Umang - add volume - keep Zoll pads on patient and utilize if symptomatic kamla <40bpm longer than 30 seconds - given suspicion for lung cancer and sepsis will try to avoid temp pacer or PPM for the time being MV-CAD s/p numerous PCI with Elevated Troponin - Trop here 0.38 and trending down in setting of acute hypoxic resp failure and septic shock - pt denies angina - no ST changes on EKG - no WMA on ECHO - 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
[2024-12-05 14:34] LABS: Troponin I 0.33 ng/ml (0.00-0.034)
[2024-12-05 14:35] LABS: Hemoglobin A1C 5.5 % (4.0-6.0)
--- NOTE | 2024-12-05 14:39 | DIET.NUTRFU ---
Patient had poor intake at lunch, drank boost. Patient reported to nurse po intake has been poor. Unable to evaluate, will start boost with trays until further evaluation
[2024-12-05] MEDS: PHENYLEPHRINE HCL 10 MG in 0.9 % SODIUM CHLORIDE 250 ML 75.3 MG IV (14:40)
[2024-12-05] MEDS: CALCIUM GLUC IN NACL, ISO-OSM 1 GM/50 ML BAG IV (14:59)
[2024-12-05] MEDS: 0.9 % SODIUM CHLORIDE 50 ML VIAL IV (15:54)
[2024-12-05] MEDS: IOPAMIDOL-370 (76%);100ML BOTTLE 70 ML IV (15:54)
[2024-12-05] MEDS: SODIUM CHLORIDE 0.9% 10ML SYR (RAD ONLY) 10 ML IV (15:54)
--- NOTE | 2024-12-05 17:05 | PC.NURSE ---
ASKED DR. COTE ABOUT THE NEED FOR NEXT TROPONIN. HE REPORTED WE DIDNT NEED TO CONTINUE THEM. RELAYED THE MESSAGE TO LAB
[2024-12-05 17:25] LABS: Mononuclear WBCs,Body Fluid 93 %; Polynuclear WBC,Body Fluid 7 %
[2024-12-05 17:58] LABS: POC Glucose,Bedside 172 (70-110)
[2024-12-05] MEDS: humaLOG 100 UNITS/ML 10ML VIAL (SSI) SUBCUT (18:06)
[2024-12-05] MEDS: IPRATROPIUM/ALBUTEROL 3 ML NEB IH (18:24)
[2024-12-05 19:41] LABS: PTT Heparin (inpatient only) 27.3 Seconds (50-75)
--- NOTE | 2024-12-05 19:45 | EXP.EVENT.NO ---
Advance care planning note: Active diagnosis: Septic shock, suspected cancer, bilateral PEs, acute respiratory failure, pneumonia, pleural effusion, NSTEMI The patient's active diagnoses are of sufficient risk that focused discussion on advanced care planning is indicated in order to allow the patient to thoughtfully consider personal goals of care; and, if situations arise that prevent the ability to personally give input, to ensure appropriate representation of their personal desires through documentation or informed surrogate decision makers. Discussion: Persons present and participating in discussion: Son, sister, [id number], patient Discussion: Due to for discussions with patient and family today about presentation, critical illness, suspected diagnoses. Brief discussion about 10 minutes prior to imaging results. Discussed patient's presentation with septic shock and concern for malignancy with her effusion. Discussed goals of care, patient wants to be full code at this time. After images came back, explained to patient that she has what appears to be metastatic disease with lung cancer and potentially stomach cancer with lesions on the pleura as well as liver and lymphadenopathy in her abdomen. Patient wanted to talk more to her sister prior to addressing goals of care again and switching to DNR. At this time we will continue aggressive care with anticoagulation for PEs, antibiotics, respiratory support with Vapotherm. Patient asked for feeding tube because she is hungry. Explained that this would not be an emergent intervention. Will trial p.o. liquids. Time spent: Total time spent [id number] in education and discussion directly related to advance care plannin minutes Sergio Lei 12/05/2024
[2024-12-05] MEDS: HYDROCODONE 10MG/APAP 325MG TAB 1 TAB PO (20:21)
[2024-12-05] MEDS: diphenhydrAMINE 25MG CAPSULE 25 MG PO (20:21)
[2024-12-05] MEDS: HEPARIN SODIUM 5,000 UNIT/ML VIAL 3600 UNIT IV (20:23)
[2024-12-05] MEDS: HEPARIN SODIUM,PORCINE/D5W 500 ML 16.8 UNIT IV (20:25)
[2024-12-05 21:26] LABS: POC Glucose,Bedside 155 (70-110)
--- NOTE | 2024-12-05 22:27 | PC.NURSE ---
at bedside with provider nichole pt expresses wishes to pass comfortably and does not want to continue any treatment, dnr form filled out and on the chart. Will proceed with comfort care for patient once orders are in.
[2024-12-05] MEDS: diphenhydrAMINE 50MG/ML VIAL 50 MG IV (22:32)
[2024-12-05] MEDS: MORPHINE 2MG/ML SYRINGE 2 MG IV (22:41)
--- NOTE | 2024-12-06 01:36 | P.DN_ITS ---
Documented by User: Chino Kyle, MELISSA 12/06/24 08:11 Pronouncement Note Date and Time of Date of : 12/05/24 Time of : 22:50 PCOD Preliminary cause of : Respiratory failure Contributing Factors (1) Septic shock: (2) NSTEMI (non-ST elevated myocardial infarction): (3) Pleural effusion: (4) History of CVA with residual deficit: (5) Multiple sclerosis: (6) Seizure disorder: (7) Demyelinating disorder: (8) Obstructive pneumonia: (9) Lung mass: (10) Liver lesion: (11) Bilateral pulmonary embolism: (12) Cor pulmonale, acute: (13) Metastatic lung cancer (metastasis from lung to other site): Summary Additional details: Was called to bedside by RN at patient request. Patient had decided that she had enough of medical treatment and would like to be comfort care. Sister Bradley was at bedside. Patient was alert and oriented and made her wishes clear. Signed advanced directives that she no longer wanted aggressive treatment for her medical conditions including supplemental oxygen. Comfort care orders were placed. Patient was not in distress and shortly thereafter at approxi mately 2250. Additional Data Confirmation of : no pulse, no respirations and no heart sounds Family: at bedside Attending/PCP notified?: No Attending physician: Sergio Lei MD Was code activated?: No Autopsy should be considered if:: Unknown or unanticipated medical complications Cause is not known with certainty on clinical grounds Would allay concerns of the public/family regarding Unexplained/unexpected apparently natural and not subject to a forensic medical jurisdiction DOA Within 24 hours of admission Sustained or apparently sustained injury while in the hospital Result of high risk, infectious and contagious disease Obstetric and pediatric arising from environmental or occupational hazard Unexplained/unexpected from dental, medical, or surgical diagnostic procedures and/or therapies Would disclose a known or suspected illness which also may have a bearing on survivors or recipients of transplanted organs Autopsy requested?: No Refused by family Organ bank notified?: Yes Advance directives: Yes Documented by User: Sergio Lei MD 12/07/24 08:29 Pronouncement Note Contributing Factors (1) Septic shock: (2) NSTEMI (non-ST elevated myocardial infarction): (3) Pleural effusion: (4) History of CVA with residual deficit: (5) Multiple sclerosis: (6) Seizure disorder: (7) Demyelinating disorder: (8) Obstructive pneumonia: (9) Lung mass: (10) Liver lesion: (11) Bilateral pulmonary embolism: (12) Cor pulmonale, acute: (13) Metastatic lung cancer (metastasis from lung to other site): Summary Additional details: Was called to bedside by RN at patient request. Patient had decided that she had enough of medical treatment and would like to be comfort care. Sister Bradley was at bedside. Patient was alert and oriented and made her wishes clear. Signed advanced directives that she no longer wanted aggressive treatment for her medical conditions including supplemental oxygen. Comfort care orders were placed. Patient was not in distress and shortly thereafter at appr oximately 2250. Patient admitted as transfer from [facility] due to respiratory distress, concern for NSTEMI, pleural effusion. On arrival patient was unstable and on dopamine drip. Placed on BiPAP. Thoracentesis performed. Patient required significant services throughout the day with aggressive workup for concern for septic shock versus cardiogenic shock. Imaging finally obtained after patient was stabilized after fluid resuscitation and initiation of Umang- Synephrine. CTA of chest abdomen and pelvis obtained. Images showed significant burden of cancer with lesion in the lung and pleural metastases. Effusion almost certainly malignant effusion. Abdomen with thickening of the distal stomach concerning for cancer along with lesions in the liver concerning for metastases along with adrenal masses and lymphadenopathy in the abdomen. CTA of the chest confirmed bilateral pulmonary emboli with right heart strain. After patient was presented with all of this information, she chose not to pursue any further workup. Discussed her condition with her sister, together they came to the decision to make patient DNR/DNI. She wanted to pursue comfort care. Care was de-escalated and patient passed peacefully shortly thereafter. Case discussed with nurse practitioner. Had cared for patient through the day until care was transitioned to nurse practitioner at shift change. Had previously examined and discussed CT findings with patient. Discussion with sister occurred after PLASTERER TENDER took over care. Agree with exam findings and care plan as documented. Additional Data computer forensics examiner notified?: Yes
--- NOTE | 2024-12-06 01:43 | PC.NURSE ---
Patient discharged off floor via [facility] @01:42
[2024-12-06 11:16] LABS: LD, Body Fluid 725 IU/L (.); Protein, Body Fluid 3.6 g/dL (.)
== END 2024-12-06 01:30 | disposition expired ==
PROVIDERS: Internal Medicine; Internal Medicine Pulmonary Disease; Admitting Provider Internal Medicine Adolescent Medicine; PCP Nurse Practitioner; Visit Provider Internal Medicine Adolescent Medicine
DX: I21.4 Non-ST elevation (NSTEMI) myocardial infarction (principal); I26.94 Multiple subsegmental thrombotic pulmonary emboli without acute cor pulmonale; R65.21 Severe sepsis with septic shock; J96.01 Acute respiratory failure with hypoxia; I69.351 Hemiplegia and hemiparesis following cerebral infarction affecting right dominant side; Z68.1 Body mass index [BMI] 19.9 or less, adult; C34.90 Malignant neoplasm of unspecified part of unspecified bronchus or lung; J91.0 Malignant pleural effusion; C78.7 Secondary malignant neoplasm of liver and intrahepatic bile duct; C78.89 Secondary malignant neoplasm of other digestive organs; G20.A1 Parkinson's disease without dyskinesia, without mention of fluctuations; I69.321 Dysphasia following cerebral infarction; G35 Multiple sclerosis; E88.A Wasting disease (syndrome) due to underlying condition; R62.7 Adult failure to thrive; G40.909 Epilepsy, unspecified, not intractable, without status epilepticus; F17.210 Nicotine dependence, cigarettes, uncomplicated; R59.0 Localized enlarged lymph nodes; M48.00 Spinal stenosis, site unspecified; Z79.02 Long term (current) use of antithrombotics/antiplatelets; Z79.899 Other long term (current) drug therapy; Z80.9 Family history of malignant neoplasm, unspecified; Z83.3 Family history of diabetes mellitus; Z91.81 History of falling; Z95.5 Presence of coronary angioplasty implant and graft
CPT/HCPCS: 70450; 71045; 71275; 74177; 80053; 80061; 82042; 82803; 82962; 83036; 83605; 83615; 83735; 83986; 84100; 84155; 84443; 84484; 85025; 85730; 87040; 87070; 87077; 87205; 87633; 89051; 93005; 93306; 94640; 94660; 94760; 94761; C1751; J1200; J1644; J2270; J2543; J3370; J7030; J7050; J7120; J7620; Q9967